=== PATIENT | male | born 1965 | race Caucasian/White ===

== ENCOUNTER 2017-08-20 18:24 | Inpatient (IN) | payer OTHER ==
[2017-08-20] MEDS ORDERED: NORMAL SALINE 1000 ML 1,000 ML IV ONE (19:21)
--- NOTE | 2017-08-20 19:23 | ER Document Report ---
ED Medical Screen (RME) - General Chief Complaint: Difficulty Swallowing Stated Complaint: DIFFICULTY SWALLOWING Time Seen by Provider: 08/20/17 19:11 Notes: 51-year-old male patient with on and off difficulty swallowing for 2-3 months. Had got to the point of having to cut his food up into small pieces. Reports Sunday morning ate breakfast of sausage, eggs, and toast and," ate like a bird ". He did try to eat a jalapeno cheeseburger at his sister's house for lunch on Sunday afternoon, has been unable to swallow since then. Reports even trying to drink tea it comes back up. Does not give a history of prior difficulty with reflux. Does not report any abdominal pain. States it feels that food or fluid hangs up in the upper sternal region. I have greeted and performed a rapid initial assessment of this patient. A comprehensive ED assessment and evaluation of the patient, analysis of test results and completion of the medical decision making process will be conducted by additional ED providers. TRAVEL OUTSIDE OF THE [place] IN LAST 30 DAYS: No - Related Data Allergies/Adverse Reactions: No Known Allergies Allergy (Verified 08/20/17 19:09) Past Medical History - Social History Chew tobacco use (# tins/day): No Frequency of alcohol use: Occasional Drug Abuse: None Renal/ Medical History: Denies: Hx Peritoneal Dialysis Past Surgical History: Reports: Hx Orthopedic Surgery - Rt arm; Rt femur Physical Exam - Vital signs Vitals: Temp Pulse Resp BP Pulse Ox 98.5 F 95 16 146/80 H 96 08/20/17 18:39 08/20/17 18:39 08/20/17 18:39 08/20/17 18:39 08/20/17 18:39 Course - Vital Signs Vital signs: Temp Pulse Resp BP Pulse Ox 98.5 F 95 16 146/80 H 96 08/20/17 18:39 08/20/17 18:39 08/20/17 18:39 08/20/17 18:39 08/20/17 18:39 Doctor's Discharge - Discharge Referrals: LOCALMD,NO [Primary Care Provider] - Follow up as needed
[2017-08-20] MEDS ORDERED: NALOXONE HCL INJ/PF 0.4 MG/1 ML SDV ONE (19:57)
[2017-08-20] MEDS ORDERED: ONDANSETRON HCL INJ/PF 4 MG/2 ML SDV ONE (19:57)
[2017-08-20] MEDS ORDERED: DIPHENHYDRAMINE HCL 50 MG/ML VIAL ONE (19:57)
[2017-08-20 19:58] LABS: ABSOLUTE BASOPHILS # (AUTO) 0.1 10^3/uL (0.0-0.2); ABSOLUTE EOSINOPHILS # (AUTO) 0.1 10^3/uL (0.0-0.6); ABSOLUTE LYMPHOCYTES (AUTO) 2.9 10^3/uL (0.5-4.7); ABSOLUTE MONOCYTES (AUTO) 0.7 10^3/uL (0.1-1.4); ABSOLUTE NEUT (AUTO) 4.2 10^3/uL (1.7-8.2); EOSINOPHILS % (AUTO) 1.7 % (0-6); HEMOGLOBIN 16.7 g/dL (13.5-17.0); LYMPHOCYTES % (AUTO) 36.1 % (13-45); MEAN CORPUSCULAR HEMOGLOBIN 31.9 pg (27.0-33.4); MEAN CORPUSCULAR HGB CONC 34.7 g/dL (32.0-36.0); MEAN CORPUSCULAR VOLUME 92 fl (80-97); MONOCYTES % (AUTO) 8.6 % (3-13); PLATELET COUNT 279 10^3/uL (150-450); RED BLOOD COUNT 5.23 10^6/uL (4.35-5.55); RED CELL DISTRIBUTION WIDTH 14.1 % (11.5-14.0); SEGMENTED NEUTROPHILS % (AUTO) 52.6 % (42-78); TOTAL CELLS COUNTED % (AUTO) 100 %; WHITE BLOOD COUNT 7.9 10^3/uL (4.0-10.5)
[2017-08-20] MEDS ORDERED: GLUCAGON,HUMAN RECOMB 1 MG INJ ONE (19:58)
[2017-08-20] MEDS ORDERED: EPINEPHRINE INJ 1 MG/10 ML DISP.SYRIN ONE (19:58)
[2017-08-20] MEDS ORDERED: FLUMAZENIL INJ 0.5 MG/5 ML VIAL ONE (19:58)
[2017-08-20] MEDS ORDERED: MIDAZOLAM 2 MG/2 ML INJ ONE (19:58)
[2017-08-20] MEDS ORDERED: FENTANYL CITRATE INJ/PF 100 MCG/2 ML AMPUL ONE (19:58)
--- NOTE | 2017-08-20 20:00 | ER Document Report ---
ED General - General Chief Complaint: Difficulty Swallowing Stated Complaint: DIFFICULTY SWALLOWING Time Seen by Provider: 08/20/17 19:11 Notes: Patient is a 51-year old male current every day smoker, uses alcohol heavily on the weekends, denies chronic additional medical problems who presents with 2 months of progressively worsening difficulty swallowing and 2 days of being completely unable to eat or drink. The patient states that each time he tries to swallow even water that it comes back up. He denies a history of similar symptoms prior to the past 2 months. He has not seen his general doctor regarding these concerns. He denies any chest pain, shortness of breath, abdominal pain, hematemesis, or melena. Nothing seems to improve or worsen his symptoms. TRAVEL OUTSIDE OF THE [place] IN LAST 30 DAYS: No - Related Data Allergies/Adverse Reactions: No Known Allergies Allergy (Verified 08/20/17 19:09) Past Medical History - General Information source: Patient - Social History Smoking Status: Current Every Day Smoker Chew tobacco use (# tins/day): No Frequency of alcohol use: Occasional Drug Abuse: None Lives with: Alone Family History: Reviewed & Not Pertinent Patient has suicidal ideation: No Patient has homicidal ideation: No Renal/ Medical History: Denies: Hx Peritoneal Dialysis Past Surgical History: Reports: Hx Orthopedic Surgery - Rt arm; Rt femur Review of Systems - Review of Systems Notes: Constitutional: Negative for fever. HENT: Positive for throat discomfort and dysphagia Eyes: Negative for visual changes. Cardiovascular: Negative for chest pain. Respiratory: Negative for shortness of breath. Gastrointestinal: Negative for abdominal pain, vomiting or diarrhea. Genitourinary: Negative for dysuria. Musculoskeletal: Negative for back pain. Skin: Negative for rash. Neurological: Negative for headaches, weakness or numbness. 10 point ROS negative except as marked above and in HPI. Physical Exam - Vital signs Vitals: Temp Pulse Resp BP Pulse Ox 98.5 F 95 16 146/80 H 96 08/20/17 18:39 08/20/17 18:39 08/20/17 18:39 08/20/17 18:39 08/20/17 18:39 Interpretation: Normal Notes: PHYSICAL EXAMINATION: GENERAL: Well-appearing, well-nourished and in no acute distress. HEAD: Atraumatic, normocephalic. EYES: Pupils equal round and reactive to light, extraocular movements intact, sclera anicteric, conjunctiva are normal. ENT: nares patent, oropharynx clear without exudates. Moist mucous membranes. NECK: Normal range of motion, supple without lymphadenopathy LUNGS: Breath sounds clear to auscultation bilaterally and equal. No wheezes rales or rhonchi. HEART: Regular rate and rhythm without murmurs ABDOMEN: Soft, nontender, normoactive bowel sounds. No guarding, no rebound. No masses appreciated. EXTREMITIES: Normal range of motion, no pitting or edema. No cyanosis. NEUROLOGICAL: No focal neurological deficits. Moves all extremities spontaneously and on command. PSYCH: Normal mood, normal affect. SKIN: Warm, Dry, normal turgor, no rashes or lesions noted. Course - Re-evaluation Re-evalutation: 08/20/17 20:00 Patient presents with 2 days of inability to swallow even fluids. He states for the past 2 months he has had some dysphasia but that it has become much worse over the last 48 hours. Denies any difficulty breathing or handling oral secretions. No stridor on exam. Patient does appear somewhat dehydrated. Dr. Kumari will perform endoscopy to further evaluate. Basic labs are pending. Patient is receiving IV fluid hydration. 08/20/17 23:56 Endoscopy shows a large esophageal mass with near complete esophageal obstruction. I did perform CT scans of the soft tissue of the neck and chest which unfortunately shows mediastinal findings consistent with likely metastatic disease. Patient's labs are otherwise unremarkable. He has received IV hydration here in the emergency department. He will be hospitalized due to his inability to swallow. I discussed with Dr. Bray who has accepted the patient for admission. - Vital Signs Vital signs: Temp Pulse Resp BP Pulse Ox 98.5 F 83 17 139/94 H 94 08/20/17 18:39 08/20/17 21:05 08/21/17 02:01 08/21/17 02:01 08/21/17 02:01 - Laboratory Result Diagrams: 08/20/17 19:49 08/20/17 19:49 Laboratory results interpreted by me: 08/20/17 08/20/17 08/20/17 19:49 19:49 20:06 RDW 14.1 H Sodium 146.2 H Total Protein 8.3 H Urine Protein 30 H Urine Ketones TRACE H Urine Urobilinogen 4.0 H Ur Leukocyte Esterase TRACE H - Diagnostic Test Radiology reviewed: Image reviewed, Reports reviewed Radiology results interpreted by me: 08/20/17 23:57 Chest x-ray: No acute infiltrate or pneumothorax Discharge - Discharge Clinical Impression: Esophageal obstruction, Esophageal mass, Dehydration Condition: Fair Disposition: ADMITTED INPATIENT Admitting Provider: Hospitalist Unit Admitted: Telemetry
--- NOTE | 2017-08-20 20:11 | RADIOLOGY REPORT (SQ) ---
EXAM DESCRIPTION: CHEST SINGLE VIEW COMPLETED DATE/TIME: 08/20/2017 7:40 pm REASON FOR STUDY: Esophageal obstruction COMPARISON: None. EXAM PARAMETERS: NUMBER OF VIEWS: One view. TECHNIQUE: Single frontal radiographic view of the chest acquired. RADIATION DOSE: NA LIMITATIONS: None. FINDINGS: LUNGS AND PLEURA: No opacities, masses or pneumothorax. No pleural effusion. MEDIASTINUM AND HILAR STRUCTURES: No masses. Contour normal. HEART AND VASCULAR STRUCTURES: Heart normal in size. Normal vasculature. BONES: No acute findings. HARDWARE: None in the chest. OTHER: No other significant finding. IMPRESSION: NO ACUTE RADIOGRAPHIC FINDING IN THE CHEST. TECHNICAL DOCUMENTATION: JOB ID: [id number] [employer]- All Rights Reserved Reading location - IP/workstation name: [email or web address]
[2017-08-20 20:19] LABS: APPEARANCE,URINE SLIGHTLY-CLOUDY; BILIRUBIN,URINE NEGATIVE (NEGATIVE); CALCIUM OXALATE CRYSTALS,URINE FEW /HPF; COLOR,URINE AMBER; GLUCOSE, URINE NEGATIVE (NEGATIVE); KETONES,URINE TRACE mg/dL (NEGATIVE); LEUKOCYTE ESTERASE,URINE TRACE (NEGATIVE); NITRITE,URINE NEGATIVE (NEGATIVE); PROTEIN,URINE 30 mg/dL (NEGATIVE); URINE SPECIFIC GRAVITY 1.029
[2017-08-20 20:20] LABS: ALANINE AMINOTRANSFERASE 23 U/L (21-72); ALBUMIN 4.5 g/dL (3.5-5.0); ALKALINE PHOSPHATASE 103 U/L (38-126); ANION GAP 13 (5-19); ASPARTATE AMINO TRANSFERASE 21 U/L (17-59); BILIRUBIN,DIRECT 0.4 mg/dL (0.0-0.4); BILIRUBIN,TOTAL 0.5 mg/dL (0.2-1.3); BLOOD UREA NITROGEN 15 mg/dL (7-20); CARBON DIOXIDE 26 mmol/L (22-30); CHLORIDE 107 mmol/L (98-107); GLUCOSE 80 mg/dL (75-110); POTASSIUM 4.1 mmol/L (3.6-5.0); SODIUM 146.2 mmol/L (137-145); TOTAL PROTEIN 8.3 g/dL (6.3-8.2)
[2017-08-20] MEDS: MIDAZOLAM 2 MG/2 ML INJ ONE ×2 (20:26→20:30)
--- NOTE | 2017-08-20 21:55 | Operative Report ---
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 Flexible esophagoscopy. 2. Biopsies of massive GE junction SURGEON: EMERY RALPH ANESTHESIA: Moderate Sedation TISSUE REMOVED OR ALTERED: Biopsies of GE junction mass COMPLICATIONS: None ESTIMATED BLOOD LOSS: Scant INTRAOPERATIVE FINDINGS: See below PROCEDURE: Patient was examined the trauma resuscitation room the emergency department of [facility]. His medical screening exam performed by Drs. Morgan and Court. The patient reveals a 2-3 month history of progressive dysphagia to solids and now liquids. He also admits to weight loss although amount unknown. Patient is edentulous. He is accompanied by friends. He has a long history of smoking and call use. Stone the patient's history, we elected to proceed with emergency department esophagoscopy for diagnosis and possible therapeutic benefit. Mechanics of the operation as well as a discussion of the risks benefits and alternatives including bleeding, infection, esophageal perforation were all discussed. Patient expresses understanding and agrees to proceed. Summary of procedure Patient was placed in the semirecumbent position, dentures removed, oral mouthpiece inserted, and appropriate monitoring devices attached. Appropriate level of conscious sedation was achieved. Surgical plan surgical timeout were conducted. The flexible adult upper endoscope was advanced through the oropharynx down the larynx into the esophagus. The scope was advanced into the midportion of the esophagus where we encountered undigested food resembling [place] fragments. Fragments floated in saliva and some were aspirated. We advanced the scope under direct visualization to approximately 40 cm which appeared to be the distal esophagus likely the GE junction. At this point there was a masslike effect with a lobulated irregular mucosa. Multiple attempts were made to carefully insinuate the scope through this obstruction but were unsuccessful. We did not force the scope. A Carter net was used to retrieve some of the food fragments. We now proceeded to perform cold forceps biopsy 3 of the distal esophageal obstruction worrisome for malignancy. Specimens were sent as GE junction mass. Scope was withdrawn. Patient tolerated the procedure well. Recommendations: 1. Admit to medical service for hydration and further radiologic evaluation. 2. Surgical and gastroenterological services will be reconsulted as needed. 3. Await results of endoscopic biopsy
--- NOTE | 2017-08-20 22:40 | RADIOLOGY REPORT (SQ) ---
EXAM DESCRIPTION: CT NECK CHEST WITH IV CONTRAST COMPLETED DATE/TME: 08/20/2017 21:01 EXAM DESCRIPTION: CLINICAL HISTORY: 51 years Male eval esophageal mass/obstruction COMPARISON: None. TECHNIQUE: Contiguous axial images obtained through the neck and chest with IV contrast. Reformatted images obtained. This exam was performed according to our department optimization program which includes automated exposure control, adjustment of the mA and/or kv according to patient size and/or use of iterative reconstruction technique. FINDINGS: There is thickening of the distal esophageal wall at the GE junction and just above it. It is difficult to measure the thickness precisely because of the lack of oral contrast. There is a gas fluid level within the mid esophagus. There is slight soft tissue stranding of the surrounding fat. The right ICA approaches midline; attention is recommended if surgery is planned. There are mildly enlarged mediastinal lymph nodes. There are mildly enlarged cervical lymph nodes. These involve the jugular chains. No other acute abnormality. IMPRESSION: Findings are concerning for possible distal esophageal spasm or inflammation or neoplasm. Follow-up is recommended.
--- NOTE | 2017-08-20 22:45 | RADIOLOGY REPORT (SQ) ---
EXAM DESCRIPTION: CT CHEST WITH COMPLETED DATE/TIME: 08/20/2017 9:51 pm REASON FOR STUDY: eval esophageal mass/obstruction COMPARISON: Chest x-ray 08/20/2017 TECHNIQUE: CT scan of the chest performed using helical scanning technique with dynamic intravenous contrast injection. Images reviewed with lung, soft tissue and bone windows. Reconstructed coronal and sagittal MPR images reviewed. All images stored on PACS. All CT scanners at this facility use dose modulation, iterative reconstruction, and/or weight based d osing when appropriate to reduce radiation dose to as low as reasonably achievable (ALARA). [facility]: Dose Right [facility]: CareDose [facility]: Dose Right [facility]: Teradose 4D [facility]: ioSemantics CONTRAST TYPE AND DOSE: 75 mL Isovue 370- low osmolar. RENAL FUNCTION: Not recorded. RADIATION DOSE: CT Rad equipment meets quality standard of care and radiation dose reduction techniq ues were employed. CTDIvol: 29.1 mGy. DLP: 1535 mGy-cm. . LIMITATIONS: None. FINDINGS: LUNGS AND PLEURA: No opacities, nodules, masses. No pneumothorax. No effusions. HILAR AND MEDIASTINAL STRUCTURES: There are some small mediastinal nodes. The esophagus is mildly di lated. There is what appears to be asymmetric thickening of the wall of the esophagus just above the gastroesophageal junction. HEART AND VASCULAR STRUCTURES: No aneurysm or dissection. No central pulmonary emboli. No pericardi al effusion. HARDWARE: None in the chest. UPPER ABDOMEN: No significant findings. Limited exam. THYROID AND OTHER SOFT TISSUES: No masses. No adenopathy. BONES: No significant finding. OTHER: No other significant finding. IMPRESSION: There is mild dilatation of the esophagus with what appears to be thickening of the wall of the distal esophagus. There are some small nonspecific mediastinal nodes. TECHNICAL DOCUMENTATION: JOB ID: [id number] Quality ID # [id number]: Final reports with documentation of one or more dose reduction techniques (e.g., Au tomated exposure control, adjustment of the mA and/or kV according to patient size, use of iterative reconstruction technique) 2010 [employer]- All Rights Reserved Reading location - IP/workstation name: [email or web address]
[2017-08-21] MEDS ORDERED: DEXTROSE 50%-WATER 25 GM/50 ML DISP.SYRIN IV PRN ×2 (00:25)
[2017-08-21] MEDS ORDERED: ACETAMINOPHEN 650 MG SUPP.RECT PR PRN (00:25)
[2017-08-21] MEDS ORDERED: DEXTROSE 40% GEL 15 GM TUBE PO PRN ×2 (00:25)
[2017-08-21] MEDS ORDERED: GLUCAGON,HUMAN RECOMB 1 MG INJ SUBCUT PRN (00:25)
[2017-08-21] MEDS ORDERED: IPRATROPIUM/ALBUTEROL 0.5-2.5 MG/3 ML AMPUL NEB PRN (00:25)
[2017-08-21] MEDS ORDERED: ONDANSETRON HCL INJ/PF 4 MG/2 ML SDV IV PRN (00:25)
[2017-08-21] MEDS ORDERED: NORMAL SALINE 1000 ML 1,000 ML IV PRN ×2 (00:30→08:41)
[2017-08-21] MEDS ORDERED: PHYTONADIONE INJ 10 MG/1 ML AMPULE SUBCUT ONE (04:08)
--- NOTE | 2017-08-21 04:27 | PDOC H&P ---
History of Present Illness Admission Date/PCP: 08/21/17 00:11 Patient complains of: Difficulty swallowing History of Present Illness: ALIZA BARNES is a 51 year old male with a past medical history of prolonged alcohol and tobacco use. He presents with 2-1/2 months of difficulty swallowing solids with regurgitation progressing to difficulty with fluids of the last week. He admits weight loss, exceptional abdominal distention with belching and gas. He reports remote but regular heavy liquor drinking from the bottle. He denies uncontrolled acid reflux. In the emergency room endoscopy is performed by Dr. Kumari revealing large distal esophageal mass with obstruction, biopsies were obtained. Patient is comfortable without nausea or vomiting and referred to the hospitalist for admission. His labs reveal market elevation of PT but denies easy bruising, bleeding or thrombosis. Past Medical History Medical History: None Neurological Medical History: Denies: Seizures Psychiatric Medical History: Reports: Alcohol Dependency, Tobacco Dependency, Other - Remote heavy use of alcohol currently weekends only, denies seizure history Hematology: Denies: Anemia, Hemophilia Past Surgical History Past Surgical History: Reports: Orthopedic Surgery - Rt arm; Rt femur Social History Information Source: Patient, [facility] Records Lives with: Alone Smoking Status: Current Every Day Smoker Cigarettes Packs Per Day: 1 Number of Years Smokin Frequency of Alcohol Use: Social Drugs: None - Advance Directive Resuscitation Status: Full Code Family History Family History: CAD, COPD Parental Family History Reviewed: Yes Children Family History Reviewed: Yes Sibling(s) Family History Reviewed.: Yes Medication/Allergy Allergies/Adverse Reactions: No Known Allergies Allergy (Verified 08/20/17 19:09) Review of Systems Constitutional: PRESENT: as per HPI, anorexia, fatigue, weight loss. ABSENT: fever(s), headache(s), night sweats, weakness Eyes: ABSENT: visual disturbances Ears: ABSENT: hearing changes Cardiovascular: ABSENT: chest pain, dyspnea on exertion, edema, orthropnea, palpitations Gastrointestinal: PRESENT: as per HPI, bloating, dysphagia, nausea. ABSENT: abdominal pain, coffee ground emesis, constipation, diarrhea, heartburn, vomiting Genitourinary: ABSENT: dysuria, hematuria Musculoskeletal: ABSENT: joint swelling Integumentary: ABSENT: rash, wounds Neurological: ABSENT: abnormal gait, abnormal speech, confusion, dizziness, focal weakness, syncope Psychiatric: ABSENT: anxiety, depression, homidical ideation, suicidal ideation Endocrine: ABSENT: cold intolerance, heat intolerance, polydipsia, polyuria Hematologic/Lymphatic: ABSENT: easy bleeding, easy bruising Physical Exam Vital Signs: Temp Pulse Resp BP Pulse Ox 98.5 F 83 17 139/94 H 94 08/20/17 18:39 08/20/17 21:05 08/21/17 02:01 08/21/17 02:01 08/21/17 02:01 General appearance: PRESENT: no acute distress, well-developed, well-nourished Head exam: PRESENT: atraumatic, normocephalic Eye exam: PRESENT: conjunctiva pink, EOMI, PERRLA. ABSENT: scleral icterus Ear exam: PRESENT: normal external ear exam Mouth exam: PRESENT: moist, tongue midline Neck exam: ABSENT: carotid bruit, JVD, lymphadenopathy, thyromegaly Respiratory exam: PRESENT: clear to auscultation edvin. ABSENT: rales, rhonchi, wheezes Cardiovascular exam: PRESENT: RRR. ABSENT: diastolic murmur, rubs, systolic murmur Pulses: PRESENT: normal dorsalis pedis pul Vascular exam: PRESENT: normal capillary refill GI/Abdominal exam: PRESENT: normal bowel sounds, soft. ABSENT: distended, guarding, mass, organolmegaly, rebound, tenderness Rectal exam: PRESENT: deferred Extremities exam: PRESENT: full ROM. ABSENT: calf tenderness, clubbing, pedal edema Neurological exam: PRESENT: alert, awake, oriented to person, oriented to place , oriented to time, oriented to situation, CN II-XII grossly intact. ABSENT: motor sensory deficit Psychiatric exam: PRESENT: appropriate affect, normal mood. ABSENT: homicidal ideation, suicidal ideation Skin exam: PRESENT: dry, intact, warm. ABSENT: cyanosis, rash Results Impressions: Chest X-Ray 08/20/17 19:22 IMPRESSION: NO ACUTE RADIOGRAPHIC FINDING IN THE CHEST. Chest CT 08/20/17 21:01 IMPRESSION: There is mild dilatation of the esophagus with what appears to be thickening of the wall of the distal esophagus. There are some small nonspecific mediastinal nodes. Soft Tissue Neck CT 08/20/17 21:01 IMPRESSION: Findings are concerning for possible distal esophageal spasm or inflammation or neoplasm. Follow-up is recommended. Assessment & Plan - Diagnosis (1) Esophageal obstruction Is this a current diagnosis for this admission?: Yes Plan: Likely secondary to malignancy, GI and hematology oncology consulted, will require PEG placement versus stenting. (2) Esophageal mass Is this a current diagnosis for this admission?: Yes Plan: Please see #1 (3) Dehydration Is this a current diagnosis for this admission?: Yes Plan: IV fluids initiated (4) Prolonged pt (prothrombin time) Is this a current diagnosis for this admission?: Yes Plan: Patient denies history of hemophilia, bleeding, thrombosis. Suspect over concentration of citric acid, reevaluation pending - Time Time Spent: 50 to 70 Minutes - Inpatient Certification Medical Necessity: Need Close Monitoring Due to Risk of Patient Decompensation
[2017-08-21 06:04] LABS: PARTIAL THROMBOPLASTIN TIME 35.6 SEC (23.5-35.8)
[2017-08-21 06:11] LABS: INTERNATIONAL RATION (INR) 1.01
[2017-08-21 06:17] LABS: PROTHROMBIN TIME 13.8 SEC (11.4-15.4)
[2017-08-21 06:50] LABS: ABSOLUTE BASOPHILS # (AUTO) 0.1 10^3/uL (0.0-0.2); ABSOLUTE EOSINOPHILS # (AUTO) 0.2 10^3/uL (0.0-0.6); ABSOLUTE MONOCYTES (AUTO) 0.6 10^3/uL (0.1-1.4); ABSOLUTE NEUT (AUTO) 3.9 10^3/uL (1.7-8.2); BASOPHILS % (AUTO) 0.8 % (0-2); EOSINOPHILS % (AUTO) 2.5 % (0-6); HEMATOCRIT 43.9 % (37.9-51.0); HEMOGLOBIN 15.1 g/dL (13.5-17.0); MEAN CORPUSCULAR HEMOGLOBIN 31.3 pg (27.0-33.4); MEAN CORPUSCULAR HGB CONC 34.5 g/dL (32.0-36.0); MEAN CORPUSCULAR VOLUME 91 fl (80-97); MONOCYTES % (AUTO) 8.7 % (3-13); PLATELET COUNT 210 10^3/uL (150-450); RED BLOOD COUNT 4.84 10^6/uL (4.35-5.55); RED CELL DISTRIBUTION WIDTH 13.9 % (11.5-14.0); TOTAL CELLS COUNTED % (AUTO) 100 %; WHITE BLOOD COUNT 6.8 10^3/uL (4.0-10.5)
[2017-08-21] MEDS: HEPARIN SOD (PORCINE) 5,000 UNIT/ML 1 ML SYRINGE SUBCUT SCH ×2 (06:55→13:51)
--- NOTE | 2017-08-21 08:26 | PDOC CONSULTATION ---
Consultation Consult Date: 08/21/17 Attending physician:: MARYLU IBARRA Consult reason:: GE junction mass History of Present Illness Admission Date/PCP: 08/21/17 00:11 Patient complains of: Complete dysphagia to solids and liquids History of Present Illness: ALIZA BARNES is a 51 year old male with history of EtOH abuse as well as tobacco use, drinks about 12-13 beers on the weekends, smokes 1 pack a day for about 40 years, notes that over the last 6 months he has been having increasing dysphagia, over the last 3-4 days it has been complete dysphagia to both solids and liquids, because of the inability to swallow anything, keep any fluids down , he presented to the ED, here he had CT of the neck chest, which did indicate a concern of a mass at the GE junction, there was subcentimeter adenopathy in the cervical and mediastinal region but not pathologically enlarged, there did not seem to be any distant disease noted. He had EGD by Dr. Kumari, who could not pass the scope past the GE junction, multiple biopsies were taken and is pending now. He is not having any pain as of now. He may have lost a few pounds but notes that he does not feel like he has had significant weight loss. Although he cannot really quantify it. Past Medical History Neurological Medical History: Denies: Seizures Psychiatric Medical History: Reports: Alcohol Dependency, Tobacco Dependency, Other - Remote heavy use of alcohol currently weekends only, denies seizure history Hematology: Denies: Anemia, Hemophilia Past Surgical History Past Surgical History: Reports: Orthopedic Surgery - Rt arm; Rt femur, Other - EGD Social History Information Source: Patient Lives with: Alone Smoking Status: Current Every Day Smoker Cigarettes Packs Per Day: 1 Number of Years Smokin Frequency of Alcohol Use: Heavy Last Alcohol Use: 08/19/17 Drugs: None - Advance Directive Resuscitation Status: Full Code Family History Family History: CAD, COPD Parental Family History Reviewed: Yes Children Family History Reviewed: Yes Sibling(s) Family History Reviewed.: Yes Medication/Allergy Home Medications: No Home Medications 08/21/17 Allergies/Adverse Reactions: No Known Allergies Allergy (Verified 08/21/17 08:04) Review of Systems Constitutional: ABSENT: chills, fever(s), headache(s), weight gain, weight loss Eyes: ABSENT: visual disturbances Ears: ABSENT: hearing changes Cardiovascular: ABSENT: chest pain, dyspnea on exertion, edema, orthropnea, palpitations Respiratory: ABSENT: cough, hemoptysis Gastrointestinal: PRESENT: dysphagia Genitourinary: ABSENT: dysuria, hematuria Musculoskeletal: ABSENT: joint swelling Integumentary: ABSENT: rash, wounds Neurological: ABSENT: abnormal gait, abnormal speech, confusion, dizziness, focal weakness, syncope Psychiatric: ABSENT: anxiety, depression, homidical ideation, suicidal ideation Endocrine: ABSENT: cold intolerance, heat intolerance, polydipsia, polyuria Hematologic/Lymphatic: ABSENT: easy bleeding, easy bruising Physical Exam Vital Signs: Temp Pulse Resp BP Pulse Ox 98.5 F 83 16 149/98 H 98 08/20/17 18:39 08/20/17 21:05 08/21/17 07:01 08/21/17 07:01 08/21/17 07:01 General appearance: PRESENT: no acute distress, well-developed, well-nourished Head exam: PRESENT: atraumatic, normocephalic Eye exam: PRESENT: conjunctiva pink, EOMI, PERRLA. ABSENT: scleral icterus Ear exam: PRESENT: normal external ear exam Mouth exam: PRESENT: moist, tongue midline Neck exam: ABSENT: carotid bruit, JVD, lymphadenopathy, thyromegaly Respiratory exam: PRESENT: clear to auscultation edvin. ABSENT: rales, rhonchi, wheezes Cardiovascular exam: PRESENT: RRR. ABSENT: diastolic murmur, rubs, systolic murmur Pulses: PRESENT: normal dorsalis pedis pul Vascular exam: PRESENT: normal capillary refill GI/Abdominal exam: PRESENT: normal bowel sounds, soft. ABSENT: distended, guarding, mass, organolmegaly, rebound, tenderness Rectal exam: PRESENT: deferred Extremities exam: PRESENT: full ROM. ABSENT: calf tenderness, clubbing, pedal edema Neurological exam: PRESENT: alert, awake, oriented to person, oriented to place , oriented to time, oriented to situation, CN II-XII grossly intact. ABSENT: motor sensory deficit Psychiatric exam: PRESENT: appropriate affect, normal mood. ABSENT: homicidal ideation, suicidal ideation Skin exam: PRESENT: dry, intact, warm. ABSENT: cyanosis, rash Results Laboratory Results: 08/21/17 06:28 08/21/17 06:28 WBC 6.8 RBC 4.84 Hgb 15.1 Hct 43.9 MCV 91 MCH 31.3 MCHC 34.5 RDW 13.9 Plt Count 210 Seg Neutrophils % 58.0 Lymphocytes % 30.0 Monocytes % 8.7 Eosinophils % 2.5 Basophils % 0.8 Absolute Neutrophils 3.9 Absolute Lymphocytes 2.0 Absolute Monocytes 0.6 Absolute Eosinophils 0.2 Absolute Basophils 0.1 Impressions: Chest X-Ray 08/20/17 19:22 IMPRESSION: NO ACUTE RADIOGRAPHIC FINDING IN THE CHEST. Chest CT 08/20/17 21:01 IMPRESSION: There is mild dilatation of the esophagus with what appears to be thickening of the wall of the distal esophagus. There are some small nonspecific mediastinal nodes. Soft Tissue Neck CT 08/20/17 21:01 IMPRESSION: Findings are concerning for possible distal esophageal spasm or inflammation or neoplasm. Follow-up is recommended. 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 Osorio who is on-call at [facility], he has accepted transfer there. He will need definitive feeding tube placement either dopoff or J-tube. Thereafter we can see him as an outpatient, order PET scan for him, and delineate whether there is any other distant disease. The next step of care would be consideration of concurrent chemoradiation then followed by surgical evaluation, that would need to be thoracic surgery evaluation as well. - Time Time Spent: Greater than 70 Minutes - Inpatient Certification Based on my medical assessment, after consideration of the patient's comorbidities, presenting symptoms, or acuity I expect that the services needed warrant INPATIENT care.: Yes I certify that my determination is in accordance with my understanding of Medicare's requirements for reasonable and necessary INPATIENT services [42 CFR 412.3e].: Yes Medical Necessity: Need For IV Fluids
--- NOTE | 2017-08-21 08:47 | PDOC TRANSFER SUMMARY ---
General Admission Date/PCP: 08/21/17 00:11 Admission Date: 08/21/17 Transfer Date: 08/21/17 Accepting Facility: [facility] Resuscitation Status: Full Code - Transfer Diagnosis (1) Esophageal obstruction Is this a current diagnosis for this admission?: Yes Diagnosis Summary: Transfer to [facility] for CT surgery evaluation. (2) Esophageal mass Is this a current diagnosis for this admission?: Yes (3) Dehydration Is this a current diagnosis for this admission?: Yes Diagnosis Summary: Hydration with IVF (4) Prolonged pt (prothrombin time) Is this a current diagnosis for this admission?: Yes Diagnosis Summary: LAB ERROR. Re-draw is normal. - Transfer Medications Home Medications: No Home Medications 08/21/17 Transfer Medications: Current Medications Acetaminophen (Tylenol 650 Mg Supp) [address] Q4HP PRN PRN Reason: FOR PAIN OR TEMP Stop: 09/20/17 00:24 Albuterol/Ipratropium (Duoneb 3 Ml Ampul) 3 ml NEB [id number] PRN PRN Reason: SHORTNESS OF BREATH Stop: 09/20/17 00:24 Dextrose (Dextrose Inj 50% Syringe (25 Gm/50 Ml)) 12.5 gm IV PRN PRN; Protocol PRN Reason: FOR BG 50-69 IN ALERT PATIENT Stop: 09/20/17 00:24 Dextrose (Dextrose Inj 50% Syringe (25 Gm/50 Ml)) 25 gm IV PRN PRN; Protocol PRN Reason: See Label Comments Stop: 09/20/17 00:24 Glucagon (Glucagen Inj 1 Mg Vial) 1 mg SUBCUT PRN PRN; Protocol PRN Reason: Evaluate for BG < 70 Stop: 09/20/17 00:24 Glucose (Glutose 40% Gel 15 Gm Tube) 15 gm PO PRN PRN; Protocol PRN Reason: For BG 50-69 in Alert Patient Stop: 09/20/17 00:24 Glucose (Glutose 40% Gel 15 Gm Tube) 30 gm PO PRN PRN; Protocol PRN Reason: FOR BG < 50 IN ALERT PATIENT Stop: 09/20/17 00:24 Heparin Sodium (Porcine) (Heparin Inj 5,000 Units/Ml 1 Ml Syringe) 5,000 unit SUBCUT Q8 MAHESH Stop: 09/20/17 05:59 Last Admin: 08/21/17 06:55 Dose: 5,000 unit Sodium Chloride (Nacl 0.9% 1000 Ml Iv Soln) 1,000 mls @ 200 mls/hr IV CONTINUOUS PRN Last Admin: 08/21/17 04:57 Dose: 1,000 ml Ondansetron HCl (Zofran Inj/Pf 4 Mg/2 Ml Sdv) 4 mg IV Q8HP PRN PRN Reason: FOR NAUSEA/VOMITING Stop: 09/20/17 00:24 - Allergies Allergies/Adverse Reactions: No Known Allergies Allergy (Verified 08/21/17 08:04) - Diet/Activity Discharge Diet: Other (Comments) - NPO Hospital Course Hospital Course: ALIZA BARNES is a 51 year old male with a past medical history of prolonged alcohol and tobacco use. He presents with 2-1/2 months of difficulty swallowing solids with regurgitation progressing to difficulty with fluids of the last week. He admits to recent weight loss, exceptional abdominal distention with belching and gas. He reports remote but regular heavy liquor drinking from the bottle. He denies uncontrolled acid reflux. In the emergency room endoscopy is performed by Dr. Kumari (Surgery) revealing large obstructing distal esophageal mass at the GE juntion. He was unable to pass scope beyond the obstruction. Biopsies were obtained. Patient is comfortable without nausea or vomiting. Remains NPO. His labs reveal market elevation of PT but denies easy bruising, bleeding or thrombosis. Believed to be a lab error. Re-draw is normal. Following evaluation by Oncology, the decision was made to transfer the patient to a larger tertiary facility for CT Surgery evaluation/treatment. Dr. Lavell Osorio at [facility] graciously accepted the patient. He is currently awaiting transfer. Physical Exam Vital Signs: Temp Pulse Resp BP Pulse Ox 98.5 F 83 16 149/98 H 98 08/20/17 18:39 08/20/17 21:05 08/21/17 07:01 08/21/17 07:01 08/21/17 07:01 Results Laboratory Results: 08/21/17 06:28 08/21/17 06:28 WBC 6.8 RBC 4.84 Hgb 15.1 Hct 43.9 MCV 91 MCH 31.3 MCHC 34.5 RDW 13.9 Plt Count 210 Seg Neutrophils % 58.0 Lymphocytes % 30.0 Monocytes % 8.7 Eosinophils % 2.5 Basophils % 0.8 Absolute Neutrophils 3.9 Absolute Lymphocytes 2.0 Absolute Monocytes 0.6 Absolute Eosinophils 0.2 Absolute Basophils 0.1 Impressions: Chest X-Ray 08/20/17 19:22 IMPRESSION: NO ACUTE RADIOGRAPHIC FINDING IN THE CHEST. Chest CT 08/20/17 21:01 IMPRESSION: There is mild dilatation of the esophagus with what appears to be thickening of the wall of the distal esophagus. There are some small nonspecific mediastinal nodes. Soft Tissue Neck CT 08/20/17 21:01 IMPRESSION: Findings are concerning for possible distal esophageal spasm or inflammation or neoplasm. Follow-up is recommended. Status: Imported from PACS Plan Discharge Plan: TRANSFER TO PENDING SALE TO [facility] FOR CARDIOTHORASIC CURGERY CONSULT Time Spent: Less than 30 Minutes
[2017-08-21 11:40] LABS: ALANINE AMINOTRANSFERASE 25 U/L (21-72); ALBUMIN 3.8 g/dL (3.5-5.0); ALKALINE PHOSPHATASE 92 U/L (38-126); ANION GAP 10 (5-19); ASPARTATE AMINO TRANSFERASE 19 U/L (17-59); BILIRUBIN,DIRECT 0.3 mg/dL (0.0-0.4); BILIRUBIN,TOTAL 0.6 mg/dL (0.2-1.3); BLOOD UREA NITROGEN 11 mg/dL (7-20); CALCIUM 9.2 mg/dL (8.4-10.2); CARBON DIOXIDE 23 mmol/L (22-30); CHLORIDE 111 mmol/L (98-107); GLUCOSE 86 mg/dL (75-110); POTASSIUM 4.5 mmol/L (3.6-5.0); SODIUM 143.8 mmol/L (137-145)
[2017-08-21 16:06] VITALS: BP 137/97
--- NOTE | 2017-08-21 19:47 | EKG REPORT ---
SEVERITY:- ABNORMAL ECG - SINUS RHYTHM VENTRICULAR BIGEMINY NONSPECIFIC T ABNORMALITIES, LATERAL LEADS : Confirmed by: Mónica Ramírez MD 21-Aug-2017 19:46:52
== END 2017-08-21 15:40 | disposition short-term general hospital (02) | DRG 376 ==
LOC: ER 18:24 → EH 08-21 00:11
PROVIDERS: ADMIT Internal Medicine; ATTEND Internal Medicine
PROC: 0DB48ZX Excision of Esophagogastric Junction, Via Natural or Artificial Opening Endoscopic, Diagnostic (ICD-10-PCS; principal; 2017-08-20 20:00)
DX: C16.0 Malignant neoplasm of cardia (principal); F10.10 Alcohol abuse, uncomplicated; E86.0 Dehydration; F17.210 Nicotine dependence, cigarettes, uncomplicated; R79.1 Abnormal coagulation profile; Z82.49 Family history of ischemic heart disease and other diseases of the circulatory system
CPT/HCPCS: 36415; 43239; 70491; 71045; 71260; 80053; 81001; 85025; 85610; 85730; 88305; 93005; 93010; 96360; 99285; J0171; J1200; J1610; J1644; J2250; J2310; J2405; J3010; J3490; J7030

== ENCOUNTER → 2017-08-26 | Outpatient (CLI) | payer OTHER ==
--- NOTE | 2017-08-27 10:24 | RADIOLOGY REPORT (SQ) ---
EXAM DESCRIPTION: PET CT SKULL/THIGH COMPLETED DATE/TIME: 08/26/2017 8:33 pm REASON FOR STUDY: MALIGNANT NEOPLASM OF LOWER THIRD ESOPHAGUS C15.5 MALIGNANT NEOPLASM OF LOWER THI RD OF ESOPHAGUS COMPARISON: CT chest and soft tissue neck 08/20/2017 RADIONUCLIDE AND DOSE: 11.6 mCi F18 FDG The route of agent administration: Intravenous FASTING BLOOD SUGAR: 88 mg/dl CONTRAST TYPE AND DOSE: No CT contrast given. TECHNIQUE: Blood glucose level was verified. Above dose of FDG was injected intravenously. 2-D seg mented attenuation correction images were obtained from the base of the skull to the midthighs. Nonc ontrast CT images were obtained for attenuation correction and fusion with emission images. CT image s were performed without oral or intravenous contrast and are not sensitive for parenchymal lesions. A series of overlapping emission PET images were obtained. Images reviewed and manipulated at [facility] work station by the radiologist. Images stored on PACS. LIMITATIONS: None. FINDINGS: HEAD AND NECK: No areas of abnormal metabolic activity in the soft tissues of the head and neck. 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 There are multiple less than 1 cm short axis lymph nodes which are non metabolic in the pretracheal, precarinal, AP window, right hilar, and subcarinal regions. ABDOMEN AND PELVIS: There are multiple less than 1 cm short axis lymph nodes surrounding the GE junct ion, celiac artery, SMA, and portal caval space which are non metabolic. PROXIMAL LOWER EXTREMITIES: No areas of abnormal metabolic activity in the soft tissues of the lower extremities. BONES: No abnormal metabolic activity in the visualized skeleton. ADDITIONAL CT FINDINGS: Left lower quadrant jejunostomy feeding tube is present. Along the right upp er quadrant anterior abdominal wall, there is a small amount of subcutaneous and deep tissue air on a xial images 157 through 171. There is trace amount of free intraperitoneal air in the right and left subphrenic regions and subxiphoid region. This report was called to Mervat Sanchez PA-C 08/27/2017 1016 hours. There is a left permanent central line with the tip in the superior vena cava. Mild bibasil ar atelectasis. OTHER: Blood pool background activity 1.4 SUV. Liver background activity 2.2 SUV. IMPRESSION: Primary esophageal lesion is hypermetabolic. Small lymph nodes in the mediastinum, right hilum, and upper abdominal regions are non metabolic. TECHNICAL DOCUMENTATION: JOB ID: [id number] [employer]- All Rights Reserved Reading location - IP/workstation name: [email or web address]
== END ==
LOC: RAD 18:30
PROVIDERS: ATTEND Physician Assistant Medical
DX: C15.5 Malignant neoplasm of lower third of esophagus (principal)
CPT/HCPCS: 78815; A9552

== ENCOUNTER 2017-09-04 07:58 | Outpatient (CLI) | payer OTHER ==
[~2017-09-04 07:58] MED LIST: CARBOPLATIN 625 MG in NORMAL SALINE 250 ML IV PRN; NORMAL SALINE 250 ML IV PRN
[2017-09-04] MEDS ORDERED: PALONOSETRON 0.25 MG/5 ML SDV IV PRN (07:59)
[2017-09-04] MEDS ORDERED: DEXAMETHASONE SOD PHOSPHATE 20 MG in NORMAL SALINE 50 ML IV PRN (07:59)
[2017-09-04] MEDS ORDERED: DIPHENHYDRAMINE HCL 50 MG/ML VIAL IV PRN (08:00)
[2017-09-04] MEDS ORDERED: FAMOTIDINE/PF 20 MG in NORMAL SALINE 50 ML IV PRN (08:01)
[2017-09-04] MEDS ORDERED: NORMAL SALINE IV PRN (08:02)
[2017-09-04] MEDS ORDERED: PACLITAXEL SEMI SYNTHETIC IV PRN (08:02)
[2017-09-04 08:24] VITALS: BP 116/72
== END 2017-09-04 14:15 | disposition home or self-care (01) ==
LOC: II 07:58 → 5TH 08:00 → II 14:15
PROVIDERS: ATTEND Internal Medicine
PROC: 3E04305 Introduction of Other Antineoplastic into Central Vein, Percutaneous Approach (ICD-10-PCS; principal; 2017-09-04)
PROC: 3E0433Z Introduction of Anti-inflammatory into Central Vein, Percutaneous Approach (ICD-10-PCS; 2017-09-04)
PROC: 3E043GC Introduction of Other Therapeutic Substance into Central Vein, Percutaneous Approach (ICD-10-PCS; 2017-09-04)
DX: Z51.11 Encounter for antineoplastic chemotherapy (principal); C15.5 Malignant neoplasm of lower third of esophagus
CPT/HCPCS: 96413; 96415; 96367; 96375; J1200; J9045; J7050; J7040; J9267; S0028; J1100; J2469; 96411

== ENCOUNTER 2017-09-25 09:18 | Outpatient (CLI) | payer OTHER ==
[~2017-09-25 09:18] MED LIST changes: +DEXAMETHASONE SOD PHOSPHATE 20 MG in NORMAL SALINE 50 ML IV PRN; +DIPHENHYDRAMINE HCL 50 MG/ML VIAL IV PRN; +FAMOTIDINE/PF 20 MG in NORMAL SALINE 50 ML IV PRN; +NORMAL SALINE IV PRN; +PACLITAXEL SEMI SYNTHETIC IV PRN; +PALONOSETRON 0.25 MG/5 ML SDV IV PRN
[2017-09-25 09:47] VITALS: BP 138/74
== END 2017-09-25 13:56 | disposition home or self-care (01) ==
LOC: II 09:18 → 5TH 09:44 → II 13:56
PROVIDERS: ATTEND Internal Medicine
PROC: 3E04305 Introduction of Other Antineoplastic into Central Vein, Percutaneous Approach (ICD-10-PCS; principal; 2017-09-25)
PROC: 3E0433Z Introduction of Anti-inflammatory into Central Vein, Percutaneous Approach (ICD-10-PCS; 2017-09-25)
PROC: 3E043GC Introduction of Other Therapeutic Substance into Central Vein, Percutaneous Approach (ICD-10-PCS; 2017-09-25)
DX: Z51.11 Encounter for antineoplastic chemotherapy (principal); C15.5 Malignant neoplasm of lower third of esophagus
CPT/HCPCS: 96413; 96415; 96367; 96374; 96375; 96360; 96417; J1200; J9045; J7050; J7040; J9267; S0028; J1100; J2469

== ENCOUNTER 2017-10-11 08:11 | Outpatient (CLI) | payer OTHER ==
[2017-10-11] MEDS ORDERED: NORMAL SALINE 1000 ML 1,000 ML IV PRN (08:25)
[2017-10-11 08:36] VITALS: BP 126/84
== END 2017-10-11 10:51 | disposition home or self-care (01) ==
LOC: II 08:11 → 5TH 08:30 → II 10:51
PROVIDERS: ATTEND Internal Medicine
PROC: 3E0437Z Introduction of Electrolytic and Water Balance Substance into Central Vein, Percutaneous Approach (ICD-10-PCS; principal; 2017-10-11)
DX: E87.5 Hyperkalemia (principal)
CPT/HCPCS: 96360; 96365; 96374

== ENCOUNTER → 2017-10-12 | Outpatient (CLI) | payer OTHER ==
[2017-10-12 06:34] LABS: ALANINE AMINOTRANSFERASE 30 U/L (21-72); ALKALINE PHOSPHATASE 109 U/L (38-126); ANION GAP 13 (5-19); ASPARTATE AMINO TRANSFERASE 20 U/L (17-59); BILIRUBIN,DIRECT 0.3 mg/dL (0.0-0.4); BILIRUBIN,TOTAL 0.4 mg/dL (0.2-1.3); BLOOD UREA NITROGEN 16 mg/dL (7-20); CALCIUM 8.9 mg/dL (8.4-10.2); CARBON DIOXIDE 22 mmol/L (22-30); CHLORIDE 107 mmol/L (98-107); GLUCOSE 93 mg/dL (75-110); POTASSIUM 4.7 mmol/L (3.6-5.0); SODIUM 141.7 mmol/L (137-145); TOTAL PROTEIN 7.5 g/dL (6.3-8.2)
== END ==
LOC: II 05:46
PROVIDERS: ATTEND Internal Medicine
DX: E87.5 Hyperkalemia (principal); C15.5 Malignant neoplasm of lower third of esophagus
CPT/HCPCS: 36415; 80053

== ENCOUNTER 2017-10-16 09:37 | Outpatient (CLI) | payer OTHER ==
[~2017-10-16 09:37] MED LIST changes: +CARBOPLATIN 250 MG in NORMAL SALINE 250 ML IV PRN; -CARBOPLATIN 625 MG in NORMAL SALINE 250 ML IV PRN; +DEXAMETHASONE SOD PHOSPHATE 10 MG in NORMAL SALINE 50 ML IV PRN; -DEXAMETHASONE SOD PHOSPHATE 20 MG in NORMAL SALINE 50 ML IV PRN
[2017-10-16 10:26] VITALS: BP 146/82
== END 2017-10-16 14:19 | disposition home or self-care (01) ==
LOC: II 09:37 → 5TH 09:38 → II 14:19
PROVIDERS: ATTEND Internal Medicine
PROC: 3E04305 Introduction of Other Antineoplastic into Central Vein, Percutaneous Approach (ICD-10-PCS; principal; 2017-10-16)
PROC: 3E0433Z Introduction of Anti-inflammatory into Central Vein, Percutaneous Approach (ICD-10-PCS; 2017-10-16)
PROC: 3E043GC Introduction of Other Therapeutic Substance into Central Vein, Percutaneous Approach (ICD-10-PCS; 2017-10-16)
DX: Z51.11 Encounter for antineoplastic chemotherapy (principal); C15.5 Malignant neoplasm of lower third of esophagus
CPT/HCPCS: 96413; 96415; 96367; 96374; 96375; 96360; J1200; J9045; J7050; J9267; S0028; J1100; J2469; 96417

== ENCOUNTER 2017-10-23 07:13 | Outpatient (CLI) | payer OTHER ==
[~2017-10-23 07:13] MED LIST changes: +FAMOTIDINE INJ/PF 20 MG/2 ML SDV IV PRN; -FAMOTIDINE/PF 20 MG in NORMAL SALINE 50 ML IV PRN
[2017-10-23 07:29] LABS: ABSOLUTE EOSINOPHILS # (AUTO) 0.1 10^3/uL (0.0-0.6); ABSOLUTE LYMPHOCYTES (AUTO) 0.6 10^3/uL (0.5-4.7); ABSOLUTE MONOCYTES (AUTO) 0.3 10^3/uL (0.1-1.4); ABSOLUTE NEUT (AUTO) 3.5 10^3/uL (1.7-8.2); BASOPHILS % (AUTO) 0.4 % (0-2); EOSINOPHILS % (AUTO) 1.5 % (0-6); HEMATOCRIT 34.9 % (37.9-51.0); HEMOGLOBIN 11.8 g/dL (13.5-17.0); LYMPHOCYTES % (AUTO) 13.5 % (13-45); MEAN CORPUSCULAR HEMOGLOBIN 31.4 pg (27.0-33.4); MEAN CORPUSCULAR VOLUME 93 fl (80-97); PLATELET COUNT 220 10^3/uL (150-450); RED BLOOD COUNT 3.77 10^6/uL (4.35-5.55); RED CELL DISTRIBUTION WIDTH 16.9 % (11.5-14.0); SEGMENTED NEUTROPHILS % (AUTO) 77.6 % (42-78); TOTAL CELLS COUNTED % (AUTO) 100 %; WHITE BLOOD COUNT 4.5 10^3/uL (4.0-10.5)
[2017-10-23 09:25] VITALS: BP 106/60
== END 2017-10-23 11:28 | disposition home or self-care (01) ==
LOC: II 07:13 → 5TH 07:15 → II 11:28
PROVIDERS: ATTEND Internal Medicine
PROC: 3E04305 Introduction of Other Antineoplastic into Central Vein, Percutaneous Approach (ICD-10-PCS; principal; 2017-10-23)
PROC: 3E0433Z Introduction of Anti-inflammatory into Central Vein, Percutaneous Approach (ICD-10-PCS; 2017-10-23)
PROC: 3E043GC Introduction of Other Therapeutic Substance into Central Vein, Percutaneous Approach (ICD-10-PCS; 2017-10-23)
DX: Z51.11 Encounter for antineoplastic chemotherapy (principal); C15.5 Malignant neoplasm of lower third of esophagus
CPT/HCPCS: 36415; 85025; 96413; 96415; 96368; 96374; 96375; 96360; J1200; J9045; J7050; J9267; S0028; J1100; J2469; 96417

== ENCOUNTER → 2017-10-23 | Outpatient (CLI) | payer OTHER | LOC: RAD 11:34 | PROVIDERS: ATTEND Internal Medicine | DX: K94.23 Gastrostomy malfunction (principal); Z53.8 Procedure and treatment not carried out for other reasons ==

== ENCOUNTER → 2017-10-25 | Day surgery (SDC) | payer OTHER ==
--- NOTE | 2017-11-01 11:36 | RADIOLOGY REPORT (SQ) ---
EXAM DESCRIPTION: REPLACE/EXCHANGE J-TUBE COMPLETED DATE/TIME: 10/30/2017 2:47 pm REASON FOR STUDY: J TUBE CHECK AND REPLACE COMPARISON: None. TECHNIQUE: Using a sterile prep technique the pre-existing jejunostomy tube was exchanged for a new one. Fluoroscopic images were saved to PACS demonstrating the final position. RADIATION DOSE: 59 seconds 4 digital fluoroscopic images saved to PACS. LIMITATIONS: None. FINDINGS: After consent was obtained, the patient was placed on the fluoroscopy table and the existi ng J-tube was prepped and draped in a sterile fashion. An 0.38 wire was placed through the existing J-tube and into the jejunum. The existing tube was exchanged for a 12 Fr J-tube. Approximately 10 m L of Isovue 300 contrast was used to confirm placement. Contrast was seen emptying out of the tube ti p and into the small bowel. Catheter length 25 cm. IMPRESSION: Successful J tube exchange for a 12F catheter. COMMENT: Quality ID 145: Final reports for procedures using fluoroscopy that document radiation exp osure indices, or exposure time and number of fluorographic images (if radiation exposure indices are not available) TECHNICAL DOCUMENTATION: JOB ID: [id number] [employer]- All Rights Reserved Reading location - IP/workstation name: [email or web address]
== END ==
LOC: RAD 07:32
PROVIDERS: ATTEND Physician Assistant Medical
DX: K94.23 Gastrostomy malfunction (principal)
CPT/HCPCS: 49451

== ENCOUNTER 2017-10-30 10:13 | Outpatient (CLI) | payer MEDICAID, OTHER ==
[2017-10-30 10:18] LABS: ALANINE AMINOTRANSFERASE 24 U/L (21-72); ALKALINE PHOSPHATASE 102 U/L (38-126); ANION GAP 9 (5-19); ASPARTATE AMINO TRANSFERASE 24 U/L (17-59); BILIRUBIN,DIRECT 0.3 mg/dL (0.0-0.4); BILIRUBIN,TOTAL 0.4 mg/dL (0.2-1.3); BLOOD UREA NITROGEN 13 mg/dL (7-20); CARBON DIOXIDE 23 mmol/L (22-30); CHLORIDE 106 mmol/L (98-107); GLUCOSE 100 mg/dL (75-110); POTASSIUM 4.8 mmol/L (3.6-5.0); SODIUM 137.8 mmol/L (137-145); TOTAL PROTEIN 7.6 g/dL (6.3-8.2)
[2017-10-30 10:28] VITALS: BP 123/81
[2017-10-30] MEDS ORDERED: DIPHENHYDRAMINE HCL 50 MG/ML VIAL ONE (13:50)
[2017-10-30] MEDS ORDERED: DEXAMETHASONE SOD PHOSPHATE INJ 4 MG/1 ML VIAL ONE (14:08)
== END 2017-10-30 15:40 | disposition home or self-care (01) ==
LOC: II 10:13 → 5TH 10:15 → II 15:40
PROVIDERS: ATTEND Internal Medicine
PROC: 3E04305 Introduction of Other Antineoplastic into Central Vein, Percutaneous Approach (ICD-10-PCS; principal; 2017-10-30)
PROC: 3E0433Z Introduction of Anti-inflammatory into Central Vein, Percutaneous Approach (ICD-10-PCS; 2017-10-30)
PROC: 3E043GC Introduction of Other Therapeutic Substance into Central Vein, Percutaneous Approach (ICD-10-PCS; 2017-10-30)
DX: Z51.11 Encounter for antineoplastic chemotherapy (principal); C15.5 Malignant neoplasm of lower third of esophagus
CPT/HCPCS: 36415; 80053; 96413; 96415; 96367; 96374; 96375; 96360; J1100 ×2; J1200; J9045; J7050; J9267; S0028; J2469; 96417

== ENCOUNTER 2017-11-06 08:01 | Outpatient (CLI) | payer MEDICAID, OTHER ==
[~2017-11-06 08:01] MED LIST changes: -DEXAMETHASONE SOD PHOSPHATE 10 MG in NORMAL SALINE 50 ML IV PRN; +DEXAMETHASONE SOD PHOSPHATE 20 MG in NORMAL SALINE 50 ML IV PRN
[2017-11-06 08:31] LABS: ABSOLUTE LYMPHOCYTES (AUTO) 0.5 10^3/uL (0.5-4.7); ABSOLUTE MONOCYTES (AUTO) 0.8 10^3/uL (0.1-1.4); ABSOLUTE NEUT (AUTO) 3.4 10^3/uL (1.7-8.2); BASOPHILS % (AUTO) 0.3 % (0-2); HEMATOCRIT 34.6 % (37.9-51.0); HEMOGLOBIN 11.7 g/dL (13.5-17.0); MEAN CORPUSCULAR HEMOGLOBIN 31.9 pg (27.0-33.4); MEAN CORPUSCULAR HGB CONC 33.9 g/dL (32.0-36.0); MEAN CORPUSCULAR VOLUME 94 fl (80-97); MONOCYTES % (AUTO) 16.7 % (3-13); PLATELET COUNT 213 10^3/uL (150-450); RED BLOOD COUNT 3.68 10^6/uL (4.35-5.55); RED CELL DISTRIBUTION WIDTH 18.4 % (11.5-14.0); TOTAL CELLS COUNTED % (AUTO) 100 %; WHITE BLOOD COUNT 4.8 10^3/uL (4.0-10.5)
[2017-11-06 08:36] VITALS: BP 109/70
[2017-11-06 09:04] LABS: ALANINE AMINOTRANSFERASE 21 U/L (21-72); ALBUMIN 3.9 g/dL (3.5-5.0); ALKALINE PHOSPHATASE 90 U/L (38-126); ANION GAP 10 (5-19); ASPARTATE AMINO TRANSFERASE 20 U/L (17-59); BILIRUBIN,DIRECT 0.3 mg/dL (0.0-0.4); BILIRUBIN,TOTAL 0.4 mg/dL (0.2-1.3); BLOOD UREA NITROGEN 12 mg/dL (7-20); CALCIUM 9.2 mg/dL (8.4-10.2); CARBON DIOXIDE 21 mmol/L (22-30); CHLORIDE 107 mmol/L (98-107); GLUCOSE 91 mg/dL (75-110); POTASSIUM 4.6 mmol/L (3.6-5.0); SODIUM 137.7 mmol/L (137-145); TOTAL PROTEIN 7.8 g/dL (6.3-8.2)
[2017-11-06] MEDS ORDERED: DIPHENHYDRAMINE HCL 50 MG/ML VIAL ONE (12:26)
[2017-11-06] MEDS ORDERED: DEXAMETHASONE SOD PHOSPHATE INJ 4 MG/1 ML VIAL ONE (12:26)
[2017-11-06] MEDS ORDERED: EPINEPHRINE INJ 1 MG/10 ML DISP.SYRIN ONE (12:35)
[2017-11-06] MEDS ORDERED: ALBUTEROL SULFATE 0.083% NEB 2.5 MG/3 ML AMPUL NEB ONE (12:43)
[2017-11-06] MEDS ORDERED: IPRATROPIUM/ALBUTEROL 0.5-2.5 MG/3 ML AMPUL NEB ONE ×2 (12:44→12:54)
[2017-11-06] MEDS ORDERED: METHYLPREDNISOLONE INJ 125 MG/2 ML SDV ONE (12:51)
== END 2017-11-06 15:09 | disposition home or self-care (01) ==
LOC: II 08:01 → 5TH 08:03 → II 15:09
PROVIDERS: ATTEND Internal Medicine
PROC: 3E04305 Introduction of Other Antineoplastic into Central Vein, Percutaneous Approach (ICD-10-PCS; principal; 2017-11-06)
PROC: 3E0433Z Introduction of Anti-inflammatory into Central Vein, Percutaneous Approach (ICD-10-PCS; 2017-11-06)
PROC: 3E043GC Introduction of Other Therapeutic Substance into Central Vein, Percutaneous Approach (ICD-10-PCS; 2017-11-06)
DX: Z51.11 Encounter for antineoplastic chemotherapy (principal); C15.5 Malignant neoplasm of lower third of esophagus
CPT/HCPCS: 36415; 85025; 80053; 94640; 96411; 96413; 96367; 96372; 96375; J1100 ×2; J1200; J0171; J9045; J2930; J7050; J9267; S0028; J7620; J2469; 96360; 96374; 96376; 96415

== ENCOUNTER 2017-11-22 09:27 | Outpatient (CLI) | payer MEDICAID ==
[2017-11-22] MEDS ORDERED: PALONOSETRON 0.25 MG/5 ML SDV IV PRN (10:17)
[2017-11-22] MEDS ORDERED: DIPHENHYDRAMINE HCL 50 MG/ML VIAL IV PRN (10:20)
[2017-11-22] MEDS ORDERED: NORMAL SALINE 250 ML IV PRN (10:21)
[2017-11-22] MEDS ORDERED: FAMOTIDINE INJ/PF 20 MG/2 ML SDV IV PRN (10:21)
[2017-11-22] MEDS ORDERED: PACLITAXEL SEMI SYNTHETIC IV PRN ×2 (10:24→10:43)
[2017-11-22] MEDS ORDERED: NORMAL SALINE IV PRN ×2 (10:24→10:43)
[2017-11-22] MEDS ORDERED: DEXAMETHASONE SOD PHOSPHATE 20 MG in NORMAL SALINE 50 ML IV PRN (10:28)
[2017-11-22 14:00] VITALS: BP 116/66
== END 2017-11-22 15:13 | disposition home or self-care (01) ==
LOC: 5TH 09:27 → II 09:27
PROVIDERS: ATTEND Internal Medicine
PROC: 3E04305 Introduction of Other Antineoplastic into Central Vein, Percutaneous Approach (ICD-10-PCS; principal; 2017-11-22)
PROC: 3E0433Z Introduction of Anti-inflammatory into Central Vein, Percutaneous Approach (ICD-10-PCS; 2017-11-22)
PROC: 3E043GC Introduction of Other Therapeutic Substance into Central Vein, Percutaneous Approach (ICD-10-PCS; 2017-11-22)
DX: C15.5 Malignant neoplasm of lower third of esophagus (principal)
CPT/HCPCS: 96413; 96367; 96375; J1200; J7050; J9267; S0028; J1100; J2469

== ENCOUNTER → 2017-12-05 | Day surgery (SDC) | payer MEDICAID ==
--- NOTE | 2017-12-05 16:05 | RADIOLOGY REPORT (SQ) ---
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 FLUOROSCOPY TIME: 2 images saved to PACS. 7 seconds of fluoroscopy was used. TECHNIQUE: Injection of contrast through existing catheter. LIMITATIONS: None. FINDINGS: Attempts were made at flushed patient's indwelling jejunostomy tube and were unsuccessful. A 0.038 guidewire was advanced through the tube which allowed to clear the blockage. Sterile salin e then flushed easily. Contrast was flushed through the tube under fluoroscopy confirms placement wi thin the jejunum and patent jejunostomy tube. CONTRAST INJECTED: 60ml of Omnipaque 300. TUBE POSITION: The tip of the catheter is within the jejunum. Contrast can be seen coursing through the small intestine. IMPRESSION: FILM SAVED TO PACS DEMONSTRATES THE CATHETER IN PROPER POSITION. COMMENT: Quality ID 145: Final reports for procedures using fluoroscopy that document radiation exp osure indices, or exposure time and number of fluorographic images (if radiation exposure indices are not available) TECHNICAL DOCUMENTATION: JOB ID: [id number] [employer]- All Rights Reserved Reading location - IP/workstation name: [email or web address]
--- NOTE | 2017-12-05 16:05 | RADIOLOGY REPORT (SQ) ---
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 FLUOROSCOPY TIME: 2 images saved to PACS. 7 seconds of fluoroscopy was used. TECHNIQUE: Injection of contrast through existing catheter. LIMITATIONS: None. FINDINGS: Attempts were made at flushed patient's indwelling jejunostomy tube and were unsuccessful. A 0.038 guidewire was advanced through the tube which allowed to clear the blockage. Sterile salin e then flushed easily. Contrast was flushed through the tube under fluoroscopy confirms placement wi thin the jejunum and patent jejunostomy tube. CONTRAST INJECTED: 60ml of Omnipaque 300. TUBE POSITION: The tip of the catheter is within the jejunum. Contrast can be seen coursing through the small intestine. IMPRESSION: FILM SAVED TO PACS DEMONSTRATES THE CATHETER IN PROPER POSITION. COMMENT: Quality ID 145: Final reports for procedures using fluoroscopy that document radiation exp osure indices, or exposure time and number of fluorographic images (if radiation exposure indices are not available) TECHNICAL DOCUMENTATION: JOB ID: [id number] [employer]- All Rights Reserved Reading location - IP/workstation name: [email or web address]
== END ==
LOC: RAD 15:17
PROVIDERS: ATTEND Internal Medicine
DX: K94.23 Gastrostomy malfunction (principal)
CPT/HCPCS: 49465; 76000

== ENCOUNTER → 2017-12-12 | Outpatient (CLI) | payer MEDICAID ==
--- NOTE | 2017-12-12 15:36 | RADIOLOGY REPORT (SQ) ---
EXAM DESCRIPTION: INJECT EXISTING/TUBE PLACEMENT; NOT FOR OR FLUORO TO 1 HR COMPLETED DATE/TIME: 12/12/2017 2:30 pm REASON FOR STUDY: GASTROTOMY MALFUNCTION, GASTROTOMY STATUS; GASTROSTOMY MALFUNCTION;GASTROSTOMY STA TUS COMPARISON: None. FLUOROSCOPY TIME: 52 seconds 4 images saved to PACS LIMITATIONS: None. PROCEDURE: Jejunostomy tube check, malfunctioning tube. FINDINGS: Attempts to flush catheter were unsuccessful. Under fluoroscopy a 0.35 guidewire was adva nced through the catheter and into the jejunum. The wire was then removed and the catheter flushed s everal times with saline. The catheter now appears to be working well. 10 cc of contrast was flushe d through the catheter and spot films for acquired and saved to PACs. IMPRESSION: Malfunctioning jejunostomy catheter which was opened with a guidewire and multiple salin e flushes. COMMENT: None PQRS 6045F: Fluoroscopy time of the procedure is documented in the report. TECHNICAL DOCUMENTATION: JOB ID: [id number] [employer]- All Rights Reserved Reading location - IP/workstation name: [email or web address] [id number]
--- NOTE | 2017-12-12 15:36 | RADIOLOGY REPORT (SQ) ---
EXAM DESCRIPTION: INJECT EXISTING/TUBE PLACEMENT; NOT FOR OR FLUORO TO 1 HR COMPLETED DATE/TIME: 12/12/2017 2:30 pm REASON FOR STUDY: GASTROTOMY MALFUNCTION, GASTROTOMY STATUS; GASTROSTOMY MALFUNCTION;GASTROSTOMY STA TUS COMPARISON: None. FLUOROSCOPY TIME: 52 seconds 4 images saved to PACS LIMITATIONS: None. PROCEDURE: Jejunostomy tube check, malfunctioning tube. FINDINGS: Attempts to flush catheter were unsuccessful. Under fluoroscopy a 0.35 guidewire was adva nced through the catheter and into the jejunum. The wire was then removed and the catheter flushed s everal times with saline. The catheter now appears to be working well. 10 cc of contrast was flushe d through the catheter and spot films for acquired and saved to PACs. IMPRESSION: Malfunctioning jejunostomy catheter which was opened with a guidewire and multiple salin e flushes. COMMENT: None PQRS 6045F: Fluoroscopy time of the procedure is documented in the report. TECHNICAL DOCUMENTATION: JOB ID: [id number] [employer]- All Rights Reserved Reading location - IP/workstation name: [email or web address] [id number]
== END ==
LOC: EDSTATUS 09:46 → RAD 12:53
PROVIDERS: ATTEND Internal Medicine
DX: K94.23 Gastrostomy malfunction (principal)
CPT/HCPCS: 49465; 76000; C1769

== ENCOUNTER 2017-12-14 12:28 | Emergency (ER) | payer MEDICAID ==
[2017-12-14] MEDS ORDERED: CEPHALEXIN 500 MG CAPSULE PO ONE (12:47)
[2017-12-14 12:49] VITALS: BP 138/89
--- NOTE | 2017-12-14 12:54 | ER Document Report ---
ED General - General Chief Complaint: Problem with Feeding Tube Stated Complaint: JTUBE PROBLEM Time Seen by Provider: 12/14/17 12:47 Notes: Chief complaint: J-tube infection History of complain:( obtained from----patient) 52 years old male with a history of esophageal cancer currently on J-tube. Around the J-tube there was infection noted. Today he was seen by the interventional radiology as well as surgeon, they unclog the J-tube and make it functional. And subsequently was sent over here to have a wound culture and be treated with antibiotic. He still eating and drinking by mouth. No fever chills or other constitutional symptoms Onset: As above Duration: Gradual Severity: Mild Quality: Sharp Context: As above Exacerbating factor and relieving factors: None REVIEW OF SYSTEMS: CONSTITUTIONAL : Denies fever, chills, or sweats. Denies recent illness. EENT: Denies eye, ear, throat, or mouth pain or symptoms. Denies nasal or sinus congestion or discharge. Denies throat, tongue, or mouth swelling or difficulty swallowing. CARDIOVASCULAR: Denies chest pain. Denies palpitations or racing or irregular heart beat. Denies ankle edema. RESPIRATORY: Denies cough, cold, or chest congestion. Denies shortness of breath, difficulty breathing, or wheezing. GASTROINTESTINAL: Denies distention. Denies nausea, vomiting, or diarrhea. Denies blood in vomitus, stools, or per rectum. Denies black, tarry stools. Denies constipation. GENITOURINARY: Denies difficulty urinating, painful urination, burning, frequency, blood in urine, or discharge. FEMALE GENITOURINARY: Denies vaginal bleeding, heavy or abnormal periods, irregular periods. Denies vaginal discharge or odor. MUSCULOSKELETAL: Denies back or neck pain or stiffness. Denies joint pain or swelling. SKIN: Denies rash, lesions or sores. HEMATOLOGIC : Denies easy bruising or bleeding. LYMPHATIC: Denies swollen, enlarged glands. NEUROLOGICAL: Denies confusion or altered mental status. Denies passing out or loss of consciousness. Denies dizziness or lightheadedness. Denies headache. Denies weakness or paralysis or loss of use of either side. Denies problems with gait or speech. Denies sensory loss, numbness, or tingling. Denies seizures. PSYCHIATRIC: Denies anxiety or stress. Denies depression, suicidal ideation, or homicidal ideation. ALL OTHER SYSTEMS REVIEWED AND NEGATIVE. PHYSICAL EXAMINATION: GENERAL: Well-appearing, well-nourished and in acute distress. Appears in mild to moderate discomfort HEAD: Atraumatic, normocephalic. EYES: Pupils equal round and reactive to light, extraocular movements intact, conjunctiva are normal. ENT: Nares patent, oropharynx clear without exudates. Moist mucous membranes. NECK: Normal range of motion, supple without lymphadenopathy LUNGS: Breath sounds clear to auscultation bilaterally and equal. No wheezes rales or rhonchi. HEART: Regular rate and rhythm without murmurs ABDOMEN: Soft, nontender, nondistended abdomen. No guarding, no rebound. No masses appreciated. J-tube is placed on the left side of the abdomen, around the tubes have a purulent discharge noted. And the skin around it shows erythematous discoloration. Which is warm and tender to touch. Examination of genitals-deferred Musculoskeletal: Normal range of motion, no pitting or edema. No cyanosis. NEUROLOGICAL: Cranial nerves grossly intact. Normal speech, normal gait. Normal sensory, motor exams PSYCH: Normal mood, normal affect. SKIN: Warm, Dry, normal turgor, no rashes or lesions noted. Dictation was performed using [employer] voice recognition software TRAVEL OUTSIDE OF THE [place] IN LAST 30 DAYS: No - HPI Notes: Dictated - Related Data Allergies/Adverse Reactions: No Known Allergies Allergy (Verified 12/14/17 12:28) Past Medical History - Social History Smoking Status: Former Smoker Frequency of alcohol use: Rare Drug Abuse: None Lives with: Family Family History: Reviewed & Not Pertinent, CAD, COPD Neurological Medical History: Denies: Hx Seizures Renal/ Medical History: Denies: Hx Peritoneal Dialysis Past Surgical History: Reports: Hx Orthopedic Surgery - Rt arm; Rt femur, Other - EGD Review of Systems - Review of Systems Notes: Dictated Physical Exam - Notes Notes: Dictated Course - Re-evaluation Re-evalutation: 12/14/17 12:51 His J-tube site was clean and the purulent discharge was cultured, subsequently the area was dressed with bacitracin ointment. Discharge - Discharge Clinical Impression: Jejunostomy tube site pain, Jejunostomy tube leak, Cellulitis of skin Condition: Fair Disposition: HOME, SELF-CARE Instructions: Transdermal Gastric Tube Placement ([facility]) Prescriptions: Cephalexin Monohydrate [Keflex 500 mg Capsule] 500 mg PO Q6H 7 Days capsule Mupirocin [Bactroban 2% Ointment 22 gm] 1 applic TP TID #1 tube Sulfamethoxazole/Trimethoprim [Bactrim Ds Tablet] 1 each PO BID #14 tablet Referrals: MEGHANN VERGARA MD [Primary Care Provider] - Follow up as needed
== END 2017-12-14 12:57 | disposition home or self-care (01) ==
LOC: ER 12:28
DX: K94.19 Other complications of enterostomy (principal); T85.848A Pain due to other internal prosthetic devices, implants and grafts, initial encounter; Y83.8 Other surgical procedures as the cause of abnormal reaction of the patient, or of later complication, without mention of misadventure at the time of the procedure; Y73.8 Miscellaneous gastroenterology and urology devices associated with adverse incidents, not elsewhere classified; L03.90 Cellulitis, unspecified; Z85.01 Personal history of malignant neoplasm of esophagus; Z87.891 Personal history of nicotine dependence
CPT/HCPCS: 87070; 87077; 87186; 87205; 99283

== ENCOUNTER → 2017-12-14 | Outpatient (CLI) | payer MEDICAID ==
--- NOTE | 2017-12-14 15:08 | RADIOLOGY REPORT (SQ) ---
EXAM DESCRIPTION: NOT FOR OR FLUORO TO 1 HR; INJECT EXISTING/TUBE PLACEMENT COMPLETED DATE/TIME: 12/14/2017 12:52 pm REASON FOR STUDY: REPLACE J TUBE; MALFUNCTION (K94.23); J TUBE CHECK K94.23 GASTROSTOMY MALFUNCTION COMPARISON: None. FLUOROSCOPY TIME: Less than one hour total fluoro time in the OR. 41 seconds 1 images saved to PACS. LIMITATIONS: None. PROCEDURE: The patient was placed on the fluoroscopy table to evaluate malfunctioning J-tube. The c atheter was again clogged and could not be instilled or aspirated from. After removal of the dressin gs, a large inflamed area of skin was noted around the entry site. Noman pus was also seen coming fr om the entry site. Dr. Negron, surgeon was asked to evaluate and recommend. He advised to send pat ient to the ED for cultures and antibiotics. Rather than replacing the catheter, the catheter was unclogged using a guidewire and flushed with garett rile saline. Patient was then sent to the ED for further treatment. IMPRESSION: MALFUNCTIONING J-TUBE. TUBE WAS UNCLOGGED AND FLUSHED WELL. INDICATIONS OF INFECTION AT ENTRY SITE, THEREFORE PATIENT SENT TO THE ED FOR FURTHER TREATMENT. COMMENT: NONE Quality ID 145: Final reports for procedures using fluoroscopy that document radiation exposure marlon heather, or exposure time and number of fluorographic images (if radiation exposure indices are not avail able) TECHNICAL DOCUMENTATION: JOB ID: [id number] [employer]- All Rights Reserved Reading location - IP/workstation name: [email or web address] [id number]
--- NOTE | 2017-12-14 15:08 | RADIOLOGY REPORT (SQ) ---
EXAM DESCRIPTION: NOT FOR OR FLUORO TO 1 HR; INJECT EXISTING/TUBE PLACEMENT COMPLETED DATE/TIME: 12/14/2017 12:52 pm REASON FOR STUDY: REPLACE J TUBE; MALFUNCTION (K94.23); J TUBE CHECK K94.23 GASTROSTOMY MALFUNCTION COMPARISON: None. FLUOROSCOPY TIME: Less than one hour total fluoro time in the OR. 41 seconds 1 images saved to PACS. LIMITATIONS: None. PROCEDURE: The patient was placed on the fluoroscopy table to evaluate malfunctioning J-tube. The c atheter was again clogged and could not be instilled or aspirated from. After removal of the dressin gs, a large inflamed area of skin was noted around the entry site. Noman pus was also seen coming fr om the entry site. Dr. Negron, surgeon was asked to evaluate and recommend. He advised to send pat ient to the ED for cultures and antibiotics. Rather than replacing the catheter, the catheter was unclogged using a guidewire and flushed with garett rile saline. Patient was then sent to the ED for further treatment. IMPRESSION: MALFUNCTIONING J-TUBE. TUBE WAS UNCLOGGED AND FLUSHED WELL. INDICATIONS OF INFECTION AT ENTRY SITE, THEREFORE PATIENT SENT TO THE ED FOR FURTHER TREATMENT. COMMENT: NONE Quality ID 145: Final reports for procedures using fluoroscopy that document radiation exposure marlon heather, or exposure time and number of fluorographic images (if radiation exposure indices are not avail able) TECHNICAL DOCUMENTATION: JOB ID: [id number] [employer]- All Rights Reserved Reading location - IP/workstation name: [email or web address] [id number]
== END ==
LOC: RAD 10:54 → EDSTATUS 12-17 10:45
PROVIDERS: ATTEND Internal Medicine
DX: K94.23 Gastrostomy malfunction (principal)
CPT/HCPCS: 49465; 76000; C1769 ×2

== ENCOUNTER → 2018-01-16 | Outpatient (CLI) | payer MEDICAID ==
--- NOTE | 2018-01-16 14:22 | XCELERA REPORT ---
[address] [address] Transthoracic Echocardiogram Report Name: ALIZA BARNES Age: 52 yrs Gender: Male : 1965 Patient Status: Outpatient Patient Location: Study Date: 01/16/2018 12:10 PM Procedure: A two-dimensional transthoracic echocardiogram with color flow and Doppler was performed. The study was technically difficult with many images being suboptimal in quality. Reason For Study: R94.31 / (Abnormal EKG0 / Z51.11 History: R94.31 (Abnormal EKG) / Z51.11. Ordering Physician: MEGHANN VERGARA Performed By: Lakesha Dunlap Interpretation Summary There is mild concentric left ventricular hypertrophy. LV EF is > thsn 65% Left ventricular systolic function is normal. Doppler measurements suggest impaired left ventricular relaxation, which is associated with grade I/IV or mild diastolic dysfunction The left ventricular wall motion is normal. There is no thrombus. The right ventricle is not well visualized secondary to technical limitations The left atrium is borderline dilated. There is no evidence of mitral valve prolapse. There is no vegetation seen on the mitral valve. There is no mitral valve stenosis. There is no mitral regurgitation noted. There is no aortic valvular vegetation. There is no aortic valve stenosis There is no LVOT obstruction. No aortic regurgitation is present. There is no tricuspid stenosis. There is a trace amount of tricuspid regurgitation Unable to calculate RVSP due lack of TR jet. There is no pulmonic valvular stenosis. There is no pulmonic valvular regurgitation. The aortic root is not well visualized but is probably normal size. There is no pericardial effusion. MMode/2D Measurements & Calculations RVDd: 2.8 cm LVIDd: 5.0 cm FS: 35.7 % Ao root diam: 3.6 cm IVSd: 1.2 cm LVIDs: 3.2 cm EDV(Teich): 119.0 ml Ao root area: 10.1 cm2 LVPWd: 1.3 cm ESV(Teich): 41.7 ml EF(Teich): 65.0 % Doppler Measurements & Calculations MV E max kateryna: MV dec slope: Ao V2 max: LV V1 max P.5 cm/sec 119.4 cm/sec 4.7 mmHg MV A max kateryna: 387.4 cm/sec2 Ao max PG: LV V1 max: 72.9 cm/sec MV dec time: 0.15 sec5.7 mmHg 108.8 cm/sec MV E/A: 0.79 PA V2 max: 113.2 cm/sec PA max P.1 mmHg Left Ventricle The left ventricle is normal in size. There is mild concentric left ventricular hypertrophy. LV EF is > thsn 65%. Left ventricular systolic function is normal. Doppler measurements suggest impaired left ventricular relaxation, which is associated with grade I/IV or mild diastolic dysfunction. The left ventricular wall motion is normal. There is no thrombus. Right Ventricle The right ventricle is not well visualized secondary to technical limitations. Atria Right atrium not well visualized secondary to technical limitations. The left atrium is borderline dilated. Mitral Valve There is no evidence of mitral valve prolapse. There is no vegetation seen on the mitral valve. There is no mitral valve stenosis. There is no mitral regurgitation noted. Aortic Valve There is no aortic valvular vegetation. There is no aortic valve stenosis. There is no LVOT obstruction. No aortic regurgitation is present. Tricuspid Valve There is no tricuspid stenosis. There is a trace amount of tricuspid regurgitation. Unable to calculate RVSP due lack of TR jet. Pulmonic Valve There is no pulmonic valvular stenosis. There is no pulmonic valvular regurgitation. Great Vessels The aortic root is not well visualized but is probably normal size. Effusions There is no pericardial effusion. : MEGHANN VERGARA > Mónica Ramírez
--- NOTE | 2018-01-16 15:01 | DRAGON STRESS TEST REPORT ---
Exercise EKG treadmill stress test. Data procedure: 01/16/2018. Ordering Provider: Dr. Nolen. Patient Status: Outpatient. Indication: Abnormal EKG and preoperative cardiac risk assessment coronary risk factors:. Age, smoking, and family history of coronary artery disease. Significant physical findings prior to stress testing show a blood pressure of 114/90 and a heart rate of 114 beat per minute. Auscultation of the heart shows normal S1 and S2.NoS3 or S4 gallops. Systolic murmur in the left sternal border and apex. Lungs are clear to auscultation and percussion. Resting 12-lead EKG:. Sinus Tachycardia. Minor nonspecific T changes apical lateral leads. [leads V5 and V6] Procedure: The patient was excised on a standard Arthur protocol. . The patient walked a total of 4 minutes and 0 to seconds on this protocol and reached a peak heart rate of 150 beats per minute, which is 90% of maximum predicted heart rate for age. This is at a workload of 6.90 METS. The test was stopped because of achievement of more than 85% of max temperature heart rate for age. The patient described no symptoms of chest pain/discomfort. Exercise EKG's show:. There is no EKG evidence of exercise-induced myocardial ischemia by EKG criteria Arrhythmias seen:None. The blood pressure response was normal 155/79. At peak exercise the blood pressure was millimeters of Hg. The double product was 23.2 K. Summary of findings and interpretation: 1. No chest pain or chest discomfort symptoms reproduced. 2. No EKG evidence of ischemia in the form of ST segment depression. 3. Normal blood pressure response. 4. No arrhythmias seen. 5. Fair exercise tolerance, fair aerobic capacity. Diagnostic treadmill stress test negative for ischemia by EKG criteria. Recommendations: 1. Correlate clinically. 2.Aggressive risk factor modification, and treatment of underlying co- morbidities. MTDD
--- NOTE | 2018-01-16 15:49 | EKG REPORT ---
SEVERITY:- ABNORMAL ECG - SINUS TACHYCARDIA MULTIPLE ATRIAL PREMATURE COMPLEXES : Confirmed by: Mónica Ramírez MD 16-Jan-2018 15:49:03
== END ==
LOC: SP 10:55
PROVIDERS: ATTEND Internal Medicine
DX: C15.5 Malignant neoplasm of lower third of esophagus (principal); Z08 Encounter for follow-up examination after completed treatment for malignant neoplasm; R07.9 Chest pain, unspecified
CPT/HCPCS: 93005; 93010; 93017; 93306

== ENCOUNTER → 2018-05-03 | Outpatient (CLI) | payer MEDICAID ==
[2018-05-03 08:56] LABS: ABSOLUTE BASOPHILS # (AUTO) 0.1 10^3/uL (0.0-0.2); ABSOLUTE LYMPHOCYTES (AUTO) 0.9 10^3/uL (0.5-4.7); ABSOLUTE MONOCYTES (AUTO) 0.8 10^3/uL (0.1-1.4); ABSOLUTE NEUT (AUTO) 7.6 10^3/uL (1.7-8.2); BASOPHILS % (AUTO) 0.7 % (0-2); EOSINOPHILS % (AUTO) 0.2 % (0-6); HEMATOCRIT 27.8 % (37.9-51.0); HEMOGLOBIN 9.3 g/dL (13.5-17.0); LYMPHOCYTES % (AUTO) 9.2 % (13-45); MEAN CORPUSCULAR HEMOGLOBIN 26.9 pg (27.0-33.4); MEAN CORPUSCULAR HGB CONC 33.6 g/dL (32.0-36.0); MEAN CORPUSCULAR VOLUME 80 fl (80-97); PLATELET COUNT 378 10^3/uL (150-450); RED BLOOD COUNT 3.47 10^6/uL (4.35-5.55); RED CELL DISTRIBUTION WIDTH 20.7 % (11.5-14.0); SEGMENTED NEUTROPHILS % (AUTO) 80.9 % (42-78); TOTAL CELLS COUNTED % (AUTO) 100 %; WHITE BLOOD COUNT 9.4 10^3/uL (4.0-10.5)
[2018-05-03 09:12] LABS: ANION GAP 13 (5-19); BLOOD UREA NITROGEN 17 mg/dL (7-20); CALCIUM 9.6 mg/dL (8.4-10.2); CARBON DIOXIDE 27 mmol/L (22-30); CHLORIDE 94 mmol/L (98-107); GLUCOSE 95 mg/dL (75-110); POTASSIUM 4.4 mmol/L (3.6-5.0); SODIUM 133.9 mmol/L (137-145)
== END ==
LOC: LAB 08:29
PROVIDERS: ATTEND Surgery
DX: C15.9 Malignant neoplasm of esophagus, unspecified (principal)
CPT/HCPCS: 36415; 80048; 85025

== ENCOUNTER 2018-09-23 13:00 | Emergency (ER) | payer MEDICAID ==
[2018-09-23] MEDS ORDERED: KETOROLAC TROMETHAMINE INJ/PF 30 MG/1 ML SDV IV ONE (14:06)
--- NOTE | 2018-09-23 14:10 | ER Document Report ---
ED Medical Screen (RME) - General Chief Complaint: Back Pain Stated Complaint: BACK PAIN Time Seen by Provider: 09/23/18 14:01 Primary Care Provider: GERI ABARCA MD [Primary Care Provider] - Follow up as needed TRAVEL OUTSIDE OF THE [place] IN LAST 30 DAYS: No - HPI Notes: 09/23/18 14:07 Patient is a 53yo male with a history of status post esophagectomy who presents complaining of severe low back pain over the past 5 to 6 days it has been relatively constant and is worse with movement. The pain does not radiate otherwise. He denies any injury. Denies drug allergies or history of spinal abscess. Patient states that he is still urinating normally. Denies any headache, fever, neck pain, URI, sore throat, chest pain, palpitations, syncope, cough, shortness of breath, wheeze, dyspnea, abdominal pain, nausea/vomiting/diarrhea, urinary retention, dysuria, hematuria, loss of control of bowel or bladder, numbness/tingling, saddle anesthesia, muscle paralysis/ weakness, or rash. I have treated and performed a rapid initial assessment of this patient. A comprehensive ED assessment and evaluation of the patient, analysis of test results and completion of medical decision making process will be conducted by additional ED providers. PHYSICAL EXAMINATION: GENERAL: Well-appearing, well-nourished and in no acute distress. A&Ox4. Answers questions appropriately. LUNGS: Breath sounds clear to auscultation bilaterally and equal. No wheezes rales or rhonchi. HEART: Regular rate and rhythm without murmurs, rubs, gallops. Abd: grossly non-tender. No CVA tenderness b/l. Back: LROM due to pain. I cannot reproduce symptoms by palp/percussion. No foot drop. SLR neg. Extremities: No cyanosis, clubbing, or edema b/l. NEUROLOGICAL: Normal speech, normal gait. PSYCH: Normal mood, normal affect. - Related Data Allergies/Adverse Reactions: No Known Allergies Allergy (Verified 09/23/18 13:16) Past Medical History Neurological Medical History: Denies: Hx Seizures Renal/ Medical History: Denies: Hx Peritoneal Dialysis Past Surgical History: Reports: Hx Abdominal Surgery - JTube placement, Hx Orthopedic Surgery - Rt arm; Rt femur, Other - EGD - Immunizations History of Influenza Vaccine for 11/2016 - 04/2017 Season: No Physical Exam - Vital signs Vitals: Temp Pulse Resp BP Pulse Ox 97.7 F 101 H 16 93/68 L 97 09/23/18 13:23 09/23/18 13:23 09/23/18 13:23 09/23/18 13:23 09/23/18 13:23 Course - Vital Signs Vital signs: Temp Pulse Resp BP Pulse Ox 97.7 F 101 H 16 93/68 L 97 09/23/18 13:23 09/23/18 13:23 09/23/18 13:23 09/23/18 13:23 09/23/18 13:23 Doctor's Discharge - Discharge Referrals: GERI ABARCA MD [Primary Care Provider] - Follow up as needed
--- NOTE | 2018-09-23 14:57 | RADIOLOGY REPORT (SQ) ---
EXAM DESCRIPTION: CT LUMBAR SPINE WITHOUT COMPLETED DATE/TIME: 09/23/2018 2:20 pm REASON FOR STUDY: severe low back pain, no injury, h/o esoph CA COMPARISON: None. TECHNIQUE: Axial images acquired through the lumbar spine without intravenous contrast. Images revi ewed with lung, soft tissue and bone windows. Reconstructed coronal and sagittal MPR images reviewe d. All images stored on PACS. All CT scanners at this facility use dose modulation, iterative reconstruction, and/or weight based d osing when appropriate to reduce radiation dose to as low as reasonably achievable (ALARA). [facility]: Dose Right [facility]: CareDose [facility]: Dose Right [facility]: Teradose 4D [facility]: [facility] RADIATION DOSE: mGy. LIMITATIONS: None. FINDINGS: SEGMENTATION: Normal. No transitional anatomy. ALIGNMENT: Mild levoscoliosis. VERTEBRAL BODIES: No fractures. No dislocation. No acute findings. Marginal osteophytes at L1-2 a nd L4-5. DISCS: Disc spaces are narrowed from L3-S1. L1-L2: No significant protrusions. No significant stenosis. L2-L3: Facet and ligament hypertrophy results in mild central canal stenosis. L3-L4: Facet and ligament hypertrophy results in mild central canal stenosis. L4-L5: Mild facet hypertrophy. No significant central canal or foraminal stenosis. L5-S1: Broad-based disc/osteophyte complex with bilateral foraminal narrowing. PEDICLES, TRANSVERSE PROCESSES: No fractures. No dislocation. No acute findings. FACETS, POSTERIOR ELEMENTS: Multilevel facet changes. HARDWARE: None in the spine. VISUALIZED RIBS: No fractures. SOFT TISSUES: No significant or acute finding in adjacent soft tissues. OTHER: No other significant finding. IMPRESSION: Spondylosis. Facet arthropathy. Mild central canal stenosis at L2-3 and L3-4. Broad-b ased disc/ osteophyte complex at L5-S1 with some degree of foraminal stenoses bilaterally. TECHNICAL DOCUMENTATION: JOB ID: [id number] Quality ID # [id number]: Final reports with documentation of one or more dose reduction techniques (e.g., Au tomated exposure control, adjustment of the mA and/or kV according to patient size, use of iterative reconstruction technique) 2010 [employer]- All Rights Reserved Reading location - IP/workstation name: [email or web address]
[2018-09-23 15:11] LABS: ABSOLUTE BASOPHILS # (AUTO) 0.1 10^3/uL (0.0-0.2); ABSOLUTE LYMPHOCYTES (AUTO) 0.7 10^3/uL (0.5-4.7); ABSOLUTE MONOCYTES (AUTO) 0.6 10^3/uL (0.1-1.4); ABSOLUTE NEUT (AUTO) 4.5 10^3/uL (1.7-8.2); BASOPHILS % (AUTO) 0.9 % (0-2); EOSINOPHILS % (AUTO) 0.2 % (0-6); HEMATOCRIT 29.3 % (37.9-51.0); HEMOGLOBIN 9.7 g/dL (13.5-17.0); LYMPHOCYTES % (AUTO) 11.5 % (13-45); MEAN CORPUSCULAR HEMOGLOBIN 27.5 pg (27.0-33.4); MEAN CORPUSCULAR HGB CONC 33.1 g/dL (32.0-36.0); MEAN CORPUSCULAR VOLUME 83 fl (80-97); MONOCYTES % (AUTO) 10.9 % (3-13); PLATELET COUNT 349 10^3/uL (150-450); RED BLOOD COUNT 3.53 10^6/uL (4.35-5.55); RED CELL DISTRIBUTION WIDTH 18.2 % (11.5-14.0); SEGMENTED NEUTROPHILS % (AUTO) 76.5 % (42-78); TOTAL CELLS COUNTED % (AUTO) 100 %; WHITE BLOOD COUNT 5.9 10^3/uL (4.0-10.5)
[2018-09-23 15:49] LABS: ALANINE AMINOTRANSFERASE 14 U/L (21-72); ALBUMIN 3.9 g/dL (3.5-5.0); ALKALINE PHOSPHATASE 158 U/L (38-126); ANION GAP 10 (5-19); ASPARTATE AMINO TRANSFERASE 31 U/L (17-59); BILIRUBIN,DIRECT 0.5 mg/dL (0.0-0.4); BILIRUBIN,TOTAL 0.8 mg/dL (0.2-1.3); BLOOD UREA NITROGEN 19 mg/dL (7-20); CALCIUM 9.3 mg/dL (8.4-10.2); CARBON DIOXIDE 26 mmol/L (22-30); CHLORIDE 96 mmol/L (98-107); GLUCOSE 121 mg/dL (75-110); POTASSIUM 4.5 mmol/L (3.6-5.0); TOTAL PROTEIN 8.4 g/dL (6.3-8.2)
[2018-09-23 17:47] LABS: AMORPHOUS SEDIMENT,URINE TRACE /HPF; APPEARANCE,URINE CLOUDY; BILIRUBIN,URINE NEGATIVE (NEGATIVE); COLOR,URINE AMBER; GLUCOSE, URINE NEGATIVE (NEGATIVE); KETONES,URINE TRACE mg/dL (NEGATIVE); LEUKOCYTE ESTERASE,URINE TRACE (NEGATIVE); NITRITE,URINE NEGATIVE (NEGATIVE); PROTEIN,URINE 30 mg/dL (NEGATIVE); URINE SPECIFIC GRAVITY 1.025
[2018-09-23] MEDS ORDERED: METHYLPREDNISOLONE INJ 125 MG/2 ML SDV IV ONE (18:24)
--- NOTE | 2018-09-23 18:30 | ER Document Report ---
ED General - General Chief Complaint: Back Pain Stated Complaint: BACK PAIN Time Seen by Provider: 09/23/18 14:01 Primary Care Provider: GERI ABARCA MD [NO LOCAL MD] - Follow up as needed TRAVEL OUTSIDE OF THE [place] IN LAST 30 DAYS: No - HPI Notes: Patient is a 53-year-old male that presents to the emergency department for chief complaint of low back pain. Patient reports acute onset of pain in his low back 5 to 6 days ago. He states he woke up with the pain. He describes it as a sharp aching sensation. The pain does not radiate and states centrally in his low back. He denies history of back pain in the past. He denies fall injury or trauma. Patient has not had any fever, chills, recent procedure on his back, lower extremity numbness or weakness, saddle anesthesia, bowel or bladder incontinence. He denies anticoagulation use. Patient has not taken anything at home for his pain. The pain is worse with any kind of movement and relieved some with rest. Past Medical History: Esophageal cancer Past Surgical History: esophagectomy Social History: Reviewed in chart Family History: Reviewed and noncontributory for presenting illness Allergies: Reviewed, see documented allergy list. REVIEW OF SYSTEMS: CONSTITUTIONAL : No fever No chills No diaphoresis No recent illness EENT: No vision changes No congestion No sore throat CARDIOVASCULAR: No chest pain No palpitations RESPIRATORY: No shortness of breath No cough No difficulty breathing GASTROINTESTINAL: No abdominal pain No nausea No vomiting No diarrhea GENITOURINARY: No dysuria No hematuria No difficulty urinating MUSCULOSKELETAL: back pain No leg pain No arm pain SKIN: No rashes No lesions LYMPHATIC: No swollen, enlarged glands. NEUROLOGICAL: No lightheadedness No headache No weakness No paresthesias PSYCHIATRIC: No anxiety No depression PHYSICAL EXAMINATION: Vital signs reviewed, nursing noted reviewed. GENERAL: Well-appearing, well-nourished and in no acute distress. HEAD: Atraumatic, normocephalic. EYES: Eyes appear normal, extraocular movements intact, sclera anicteric, conjunctiva are normal. ENT: nares patent, oropharynx clear without exudates. Moist mucous membranes. NECK: Normal range of motion, supple without lymphadenopathy LUNGS: Breath sounds clear to auscultation bilaterally and equal. No wheezes rales or rhonchi. HEART: Regular rate and rhythm without murmurs ABDOMEN: Tenderness and erythema around J-tube in the left lower abdomen, soft, nontender, normoactive bowel sounds. No rebound, guarding, or rigidity. No masses appreciated. EXTREMITIES: Nontender, good range of motion, no pitting or edema. Back: Midline tenderness over L4-L5, full range of motion of lumbar spine, mild bilateral paraspinal lumbar tenderness, normal thoracic exam. Overlying rash or erythema NEUROLOGICAL: No focal neurological deficits. Moves all extremities spontaneously Motor and sensory grossly intact on exam. PSYCH: Normal mood, normal affect. SKIN: Warm, Dry, normal turgor, - Related Data Allergies/Adverse Reactions: No Known Allergies Allergy (Verified 09/23/18 13:16) Past Medical History - Social History Smoking Status: Never Smoker Family History: Reviewed & Not Pertinent, CAD, COPD Patient has suicidal ideation: No Patient has homicidal ideation: No Neurological Medical History: Denies: Hx Seizures Renal/ Medical History: Denies: Hx Peritoneal Dialysis Past Surgical History: Reports: Hx Abdominal Surgery - JTube placement, Hx Orthopedic Surgery - Rt arm; Rt femur, Other - EGD Physical Exam - Vital signs Vitals: Temp Pulse Resp BP Pulse Ox 97.7 F 101 H 16 93/68 L 97 09/23/18 13:23 09/23/18 13:23 09/23/18 13:23 09/23/18 13:23 09/23/18 13:23 Course - Re-evaluation Re-evalutation: 09/23/18 18:30 Vitals reviewed. Nursing notes reviewed. Patient is mildly anemic which is baseline for him. He received Toradol in triage and reports significant impro vement. He is able to move his back through full range of motion. Patient has no fever or focal deficits to suggest cauda equina, epidural abscess, transverse myelitis or discitis. CT scan shows significant arthritic changes including osteophytes in the lumbar spine. Patient's symptoms likely related to his spinal arthritis. Patient will be started on Medrol Dosepak. He will take Tylenol and ibuprofen at home as needed. Patient told to follow with primary care for reevaluation if symptoms are not improving. Patient also was complaining that his J-tube was leaking, there were 6 mL's of fluid in the balloon and it is a 7 to 10 mL balloon. I reinflated his balloon with 10 mL sterile water and resecured it, this seems to be improving the leaking. He has a follow-up appointment this with his surgeon to reevaluate the J-tube. Laboratory 09/23/18 09/23/18 09/23/18 14:59 14:59 17:10 WBC 5.9 RBC 3.53 L Hgb 9.7 L Hct 29.3 L MCV 83 MCH 27.5 MCHC 33.1 RDW 18.2 H Plt Count 349 Seg Neutrophils % 76.5 Lymphocytes % 11.5 L Monocytes % 10.9 Eosinophils % 0.2 Basophils % 0.9 Absolute Neutrophils 4.5 Absolute Lymphocytes 0.7 Absolute Monocytes 0.6 Absolute Eosinophils 0.0 Absolute Basophils 0.1 Sodium 132.2 L Potassium 4.5 Chloride 96 L Carbon Dioxide 26 Anion Gap 10 BUN 19 Creatinine 0.55 Est GFR ( Amer) > 60 Est GFR (Non-Af Amer) > 60 Glucose 121 H Calcium 9.3 Total Bilirubin 0.8 Direct Bilirubin 0.5 H Neonat Total Bilirubin Not Reportable Neonat Direct Bilirubin Not Reportable Neonat Indirect Bili Not Reportable AST 31 ALT 14 L Alkaline Phosphatase 158 H Total Protein 8.4 H Albumin 3.9 Urine Color JOHN Urine Appearance CLOUDY Urine pH 5.0 Ur Specific [place] 1.025 Urine Protein 30 H Urine Glucose (UA) NEGATIVE Urine Ketones TRACE H Urine Blood NEGATIVE Urine Nitrite NEGATIVE Urine Bilirubin NEGATIVE Urine Urobilinogen 2.0 H Ur Leukocyte Esterase TRACE H Urine WBC (Auto) 16 Urine RBC (Auto) 2 Urine Bacteria (Auto) TRACE Amorphous Sediment Auto TRACE Urine Mucus (Auto) MOD Urine Ascorbic Acid [address] 09/23/18 14:05 IMPRESSION: Spondylosis. Facet arthropathy. Mild central canal stenosis at L2-3 and L3-4. Broad-based disc/ osteophyte complex at L5-S1 with some degree of foraminal stenoses bilaterally. 09/23/18 18:33 - Vital Signs Vital signs: Temp Pulse Resp BP Pulse Ox 97.7 F 101 H 16 93/68 L 97 09/23/18 13:23 09/23/18 13:23 09/23/18 13:23 09/23/18 13:23 09/23/18 13:23 - Laboratory Result Diagrams: 09/23/18 14:59 09/23/18 14:59 Laboratory results interpreted by me: 09/23/18 09/23/18 09/23/18 14:59 14:59 17:10 RBC 3.53 L Hgb 9.7 L Hct 29.3 L RDW 18.2 H Lymphocytes % 11.5 L Sodium 132.2 L Chloride 96 L Glucose 121 H Direct Bilirubin 0.5 H ALT 14 L Alkaline Phosphatase 158 H Total Protein 8.4 H Urine Protein 30 H Urine Ketones TRACE H Urine Urobilinogen 2.0 H Ur Leukocyte Esterase TRACE H Urine Ascorbic Acid 40 H Discharge - Discharge Clinical Impression: Back pain at L4-L5 level, Osteophyte of spine Condition: Stable Disposition: HOME, SELF-CARE Instructions: Low Back Pain ([facility]) Additional Instructions: Please return to the emergency department if you have any worsening, or concern of your symptoms. Please return to the emergency department if you develop fever, lower extremity numbness and weakness, difficulty with urinating or having bowel movements, chest pain, difficulty breathing, severe abdominal pain, or ongoing vomiting. Please follow-up with your primary care physician in 2-3 days and any other recommended physicians. If prescribed, take all medications as directed. If you have any questions or concerns do not hesitate to return the emergency department for evaluation. Begin the steroid prescription tomorrow Prescriptions: Methylprednisolone [Medrol Dosepack (4 mg/Tab) 21 Tab/Dosepak] 4 mg PO ASDIR PRN #[id number] [email or web address] PRN Reason: Referrals: GERI ABARCA MD [NO LOCAL MD] - Follow up in 3-5 days
[2018-09-23 18:54] VITALS: BP 103/73
== END 2018-09-23 19:04 | disposition home or self-care (01) ==
LOC: ER 13:00
DX: M47.9 Spondylosis, unspecified (principal); M48.061 Spinal stenosis, lumbar region without neurogenic claudication; M54.5 Low back pain; T85.598A Other mechanical complication of other gastrointestinal prosthetic devices, implants and grafts, initial encounter; Y73.8 Miscellaneous gastroenterology and urology devices associated with adverse incidents, not elsewhere classified; R10.814 Left lower quadrant abdominal tenderness; L53.9 Erythematous condition, unspecified; D64.9 Anemia, unspecified; Z85.01 Personal history of malignant neoplasm of esophagus
CPT/HCPCS: 99284; 96374; 96375; 36415; 85025; 80053; 81001; 72131; J2930; J1885